=== PATIENT | male | born 1960 | race Caucasian/White ===

== ENCOUNTER 2017-02-28 16:27 | Emergency (ER) | payer OTHER ==
[2017-02-28 16:36] VITALS: BP 111/72; PULSE 99; RESP 16; TEMP 97.7
[2017-02-28] MEDS ORDERED: DIPH,PERTUS(ACELL)TETVAC-LF 0.5 ML VIAL IM ONE (16:41)
--- NOTE | 2017-02-28 17:08 | ED ---
Wound/Laceration HPI - General Chief Complaint: Wound/Laceration Stated Complaint: hand lac Time Seen by Provider: 02/28/17 16:32 Source: patient, family Mode of arrival: ambulatory Limitations: no limitations - History of Present Illness Initial Comments: 56 old male presents to clinic with left hand laceration that occurred just prior to arrival. Patient was fishing and knife accidentally caused a laceration near the 4th MCP region. Patient states it hurt really bad and blood really bad there is able to move his hand. Patient denies any numbness or tingling or loss of sensation. Patient not sure if his tetanus is up-to- date. Patient didn't get the bleeding under control with pressure. Patient was not able to clean the wound. -: minutes(s) Place: outdoors Context: accidental, sharp object use Associated Symptoms: pain - Related Data Home Medications Medication Instructions Recorded Confirmed Multivitamin [Men's Multi-Vitamin] 1 each PO DAILY 07/05/14 02/28/17 Simvastatin [Zocor] 10 mg PO HS 07/05/14 02/28/17 oxyCODONE HCL [Oxycodone HCl] 5 mg PO HS PRN 08/30/14 02/28/17 Previous Rx's Medication Instructions Recorded clonazePAM [KlonoPIN] 2 mg PO TID #90 tablet 08/02/14 oxyCODONE HCL 20 mg PO Q6HR PRN #120 tab 08/02/14 Ibuprofen [Motrin] 800 mg PO Q8HR PRN #30 tab 02/28/17 Sulfamethox-Tmp 800-160Mg [Bactrim 1 each PO Q12HR #14 tab 02/28/17 DS 800-160 mg] Allergies Allergy/AdvReac Type Severity Reaction Status Date / Time Penicillins Allergy Rash/Hives Verified 02/28/17 16:31 Review of Systems ROS Statement: Those systems with pertinent positive or pertinent negative responses have been documented in the HPI. ROS Other: All systems not noted in ROS Statement are negative. Constitutional: Denies: fever, chills Skin: Reports: other (Laceration to the left hand between first and second digit ). Denies: rash, lesions Past Medical History Past Medical History: Fibromyalgia, Sleep Apnea/CPAP/BIPAP, Thyroid Disorder Additional Past Medical History / Comment(s): DOES NOT USE CPAP. KARTHIK CARPAL TUNNEL PROBS. CHRONIC LOW BACK/NECK PAIN. History of Any Multi-Drug Resistant Organisms: None Reported Past Surgical History: Appendectomy, Orthopedic Surgery Additional Past Surgical History / Comment(s): RT. HAND SURGERY . COLONOSCOPY 2010. Past Anesthesia/Blood Transfusion Reactions: No Reported Reaction Past Psychological History: Anxiety Smoking Status: Current every day smoker Past Alcohol Use History: None Reported Past Drug Use History: None Reported General Exam Limitations: no limitations General appearance: alert, in no apparent distress Eye exam: Present: normal appearance, PERRL, EOMI. Absent: scleral icterus, conjunctival injection, periorbital swelling Respiratory exam: Present: normal lung sounds bilaterally. Absent: respiratory distress, wheezes, rales, rhonchi, stridor Cardiovascular Exam: Present: regular rate, normal rhythm, normal heart sounds. Absent: systolic murmur, diastolic murmur, rubs, gallop, clicks Neurological exam: Present: alert, oriented X3, CN II-XII intact Psychiatric exam: Present: normal affect Skin exam: Present: warm, dry, normal color. Absent: intact (Greater than 1 cm stellate lesion to the left 4th MCP region. Bleeding controlled slightly tender to palpation full range of motion of the hand full sensation good capillary refill and radial pulse.), rash Course Vital Signs 02/28/17 16:32 Temperature 97.7 F Pulse Rate 99 Respiratory 16 Rate Blood Pressure 111/72 O2 Sat by Pulse 94 L Oximetry Procedures - Laceration Laceration #1 Indication: laceration Site: hand Description: stellate, flap Depth: simple, single layer Anesthetic Used: lidocaine 1% Anesthesia Technique: local infiltration Pre-repair: wound explored, irrigated extensively, deep structures intact Size of Sutures: 5-0 Number of Sutures: 4 Technique: simple, interrupted Patient Tolerated Procedure: well, no complications Additional Comments: Patient tolerated it well bacitracin dressing applied Medical Decision Making - Medical Decision Making Reviewed x-ray negative for any acute fractures. Patient aware patient given Scott wrap along with bandage in bacitracin. Disposition Clinical Impression: Laceration Disposition: HOME SELF-CARE Condition: Good Instructions: Laceration (ED) Prescriptions: Ibuprofen [Motrin] 800 mg PO Q8HR PRN #30 tab PRN Reason: Pain Sulfamethox-Tmp 800-160Mg [Bactrim DS 800-160 mg] 1 each PO Q12HR #14 tab Referrals: Eran Gillette DO [Primary Care Provider] - 1-2 days Time of Disposition: 17:25
--- NOTE | 2017-02-28 17:37 | XR ---
Left hand HISTORY: Laceration fourth and fifth metacarpal area 3 views of the left hand No comparisons Bone mineralization, joint spaces and alignment are maintained. No radiopaque foreign body. IMPRESSION: No acute abnormalities evident
== END 2017-02-28 17:30 | disposition home or self-care (01) ==
LOC: EC 16:27
DX: S61.412A Laceration without foreign body of left hand, initial encounter (principal); F17.200 Nicotine dependence, unspecified, uncomplicated; Z79.899 Other long term (current) drug therapy; Z88.0 Allergy status to penicillin; Z23 Encounter for immunization; Z98.890 Other specified postprocedural states; W26.0XXA Contact with knife, initial encounter; Y93.89 Activity, other specified
CPT/HCPCS: 12041; 90471; 90715; 99282

== ENCOUNTER 2018-08-16 12:43 | Emergency (ER) | payer OTHER ==
[2018-08-16 13:12] VITALS: BP 138/77; PULSE 45; RESP 18; TEMP 96.8
--- NOTE | 2018-08-16 14:24 | XR ---
EXAMINATION TYPE: XR shoulder complete LT DATE OF EXAM: 08/16/2018 COMPARISON: NONE HISTORY: Pain TECHNIQUE: Three views are submitted. FINDINGS: The osseous structures are intact. There is no acute fracture or dislocation. Mild arthropathy of th e AC joint. IMPRESSION: 1. No acute process. 2. AC joint arthropathy. If there is concern for rotator cuff injury correlate with MRI.
--- NOTE | 2018-08-16 14:41 | ED ---
Upper Extremity HPI - General Chief Complaint: Extremity Injury, Upper Stated Complaint: lt arm pain Time Seen by Provider: 08/16/18 12:52 Source: patient, family Mode of arrival: ambulatory Limitations: no limitations - History of Present Illness Initial Comments: 58-year-old male with past medical history of chronic bilateral shoulder pain and cervical radiculopathy presenting today for worsening left shoulder pain x months. Patient states that he has been struggling with shoulder pain for the past 10 years. He was recently diagnosed with a rotator cuff injury via MRI. He was seen by Dr. Cerda. 3 months ago patient received shoulder injection which he states worsening the pain. Pt describes the pain as a sharp shooting pain from the shoulder down to the wrist. Pt states that the pain is aching at night. Pt states that the flores is 10/10 at its worst but it fluculates throughout the day. She denied muscle weakness, erythema, joint warmth/swelling , numbness, tingling, loss sensation of the upper left extremity. Does admit to decreased range motion of left shoulder and crepitus of left shoulder. Pt was inquiring if a blood clot can cause this much pain, pt denies history of active cancer, bedridden greater than 3 days her major surgery, swelling or upper extremity swelling, previously diagnosed DVT, upper extremity swelling/ lower extremity swelling, warmth, redness, masses of the upper extremity or pain the deep venous system. Pt denies any new injury to neck or shoulder b/l. No history of fall. Pt has been taking norco for pain as prescribed for pain mgmt. Remainder of ROS (-) patient denies any recent fever, chills, shortness of breath, chest pain, back pain, abdominal pain, nausea or vomiting, numbness or tingling, dysuria or hematuria, constipation or diarrhea, headaches or visual changes, or any other complaints. - Related Data Home Medications Medication Instructions Recorded Confirmed Multivitamin [Men's Multi-Vitamin] 1 tab PO DAILY 07/05/14 08/16/18 Atorvastatin Calcium [Lipitor] 10 mg PO HS 08/16/18 08/16/18 Gabapentin (Unknown Dose) 1 cap PO HS 08/16/18 08/16/18 Magnesium Oxide [Mag-Ox] 250 mg PO DAILY 08/16/18 08/16/18 oxyCODONE HCL 30 mg PO Q6H PRN 08/16/18 08/16/18 Previous Rx's Medication Instructions Recorded Ibuprofen [Motrin] 800 mg PO Q8HR PRN #30 tab 02/28/17 Allergies Allergy/AdvReac Type Severity Reaction Status Date / Time Penicillins Allergy Rash/Hives Verified 08/16/18 13:46 Review of Systems ROS Statement: Those systems with pertinent positive or pertinent negative responses have been documented in the HPI. ROS Other: All systems not noted in ROS Statement are negative. Constitutional: Denies: fever, chills, night sweats Respiratory: Denies: cough, dyspnea, wheezes, hemoptysis, stridor Cardiovascular: Denies: chest pain, palpitations Endocrine: Denies: fatigue Gastrointestinal: Denies: abdominal pain, nausea, vomiting, diarrhea, constipation Musculoskeletal: Reports: as per HPI (chronic neck pain hx of bulging disc c- spine), arthralgia. Denies: back pain, joint swelling Skin: Denies: rash, lesions Neurological: Denies: headache, weakness, numbness, paresthesias, confusion, abnormal gait Past Medical History Past Medical History: Fibromyalgia, Sleep Apnea/CPAP/BIPAP, Thyroid Disorder Additional Past Medical History / Comment(s): DOES NOT USE CPAP. KARTHIK CARPAL TUNNEL PROBS. CHRONIC LOW BACK/NECK PAIN. History of Any Multi-Drug Resistant Organisms: None Reported Past Surgical History: Appendectomy, Orthopedic Surgery Additional Past Surgical History / Comment(s): RT. HAND SURGERY 1979'S. COLONOSCOPY 2010. Past Anesthesia/Blood Transfusion Reactions: No Reported Reaction Past Psychological History: Anxiety Smoking Status: Current every day smoker Past Alcohol Use History: None Reported Past Drug Use History: None Reported General Exam - General Exam Comments Initial Comments: General: The patient is awake and alert, in no distress, and does not appear acutely ill. Eye: Pupils are equal, round , extra-ocular movements are intact. No nystagmus. There is normal conjunctiva bilaterally. No signs of icterus. Ears, nose, mouth and throat: There are moist mucous membranes and no oral lesions. Neck: The neck is supple, there is no tenderness or JVD. No midline tenderness to palpation of the C-spine. Patient is able to fully range this time with flexion, extension, lateral rotation and lateral flexion. Cardiovascular: There is a regular rate and rhythm. No murmur, rub or gallop is appreciated. Respiratory: Lungs are clear to auscultation, respirations are non-labored, breath sounds are equal. No wheezes, stridor, rales, or rhonchi. Musculoskeletal: No rashes, lesions, erythema or swelling of shoulder b/l. No obvious deformities or defect .No winging of the scapula. Limited ROM of the right UE, pt complains of palpation over the AC joint no pain to palpation of the scalpula. (+) Neer testing, Empty can, AC cross testing. Strength 5/5 the UE equally b/l including shoulder, elbows, and wrist. No badge anesthesia. Sensation intact of the UE equally b/l. Radial and ulnar pulses equal bilaterally 2+. Capillary refill <2seconds. Patient is able to make the okay, fingers crossed for thumbs-up, finger opposition and stop sign with the hands bilaterally-median, ulnar and radial nerve intact bilaterally. No pain along deep venous system of UE b/l. No edema or swelling of the UE b/l. No masses noted along deep venous system. Neurological: A&O x 3. CN II-XII intact, There are no obvious motor or sensory deficits. Coordination appears grossly intact. Speech is normal. Skin: Skin is warm and dry and no rashes or lesions are noted. Psychiatric: Cooperative, appropriate mood & affect, normal judgment. Limitations: no limitations Course Vital Signs 08/16/18 13:05 Temperature 96.8 F L Pulse Rate 45 L Respiratory 18 Rate Blood Pressure 138/77 O2 Sat by Pulse 98 Oximetry Medical Decision Making - Medical Decision Making MSK exam as noted above, concerning for rotator cuff or AC joint disease/ injury. Pt is neurovascularly intact. X-ray obtained revealing AC joint arthropathy (-) for fracture, dislocation. Pt placed in sling. Given orthopedic surgery f/u. I do not have concern for DVT, (-) Wells score and clinical signs and symptoms correlate with rotator cuff injury/cervical radiculopathy. Pt denied pain medication today stating he just wanted orthopedic referral. Pt given disc of imagine obtained today, I recommended further imaging such as MRI which he can obtain from orthopedic consultation if deemed appropriate. I do not have concern for a septic joint for cause of symptoms. At this time I feel pt is stable for discharge with orthopedic surgery f/u for possible rotator cuff injury. Case discussed with Dr. Zhu prior to d/c who agreed with impression and plan. Disposition Clinical Impression: Left shoulder pain, Radiculopathy of cervical spine Disposition: HOME SELF-CARE Condition: Good Instructions: Rotator Cuff Injury (ED), Shoulder Pain (ED) Additional Instructions: Please use home medication as discussed. Please follow-up with orthopedic surgery in the next 1-2 days. Please return to emergency room if the symptoms increase or worsen or for any other concerns, as discussed. Is patient prescribed a controlled substance at d/c from ED?: No Referrals: Eran Gillette DO [Primary Care Provider] - 1-2 days Jovon Bush MD [STAFF PHYSICIAN] - 1-2 days Time of Disposition: 14:41
== END 2018-08-16 14:53 | disposition home or self-care (01) ==
LOC: EC 12:43
DX: M54.12 Radiculopathy, cervical region (principal); M25.512 Pain in left shoulder; F41.9 Anxiety disorder, unspecified; F17.200 Nicotine dependence, unspecified, uncomplicated; Z90.49 Acquired absence of other specified parts of digestive tract; Z98.890 Other specified postprocedural states; Z79.899 Other long term (current) drug therapy; Z88.0 Allergy status to penicillin
CPT/HCPCS: 99283

== ENCOUNTER → 2019-02-14 | Outpatient (CLI) | payer OTHER ==
--- NOTE | 2019-02-14 14:00 | MR ---
EXAMINATION TYPE: MR shoulder RT wo con DATE OF EXAM: 02/14/2019 COMPARISON: Right shoulder MRI December 04, 2010 HISTORY: Shoulder joint pain per order. Recent trip and fall injury with pain and difficulty raising arm overhead. TECHNIQUE: Multiplanar, multisequence imaging of the right shoulder is performed without contrast. FINDINGS: Rotator Cuff: There is tiny insertional articular surface tear distal supraspinatus tendon posterior fibers measuring 3 mm transversely coronal image 14 and 2 mm in AP diameter sagittal image 24. Some i ncreased signal distal supraspinatus tendon is present present. Rotator cuff muscle bulk is preserved . Subscapularis tendon is intact. Acromioclavicular Joint: Mild to moderate capsular hypertrophy with moderate narrowing is present. Th ere is type II downsloping acromion. Glenohumeral Joint: Moderate narrowing with small effusion is redemonstrated. No significant spurring is seen. Labrum: The labrum appears grossly intact given limitation of non-arthrogram study. Biceps Tendon: The long head of biceps is in normal location within bicipital groove. Bone marrow signal: Heterogeneity consistent with red marrow reconversion is seen. Other: Increased fluid signal subdeltoid/subacromial bursa is present. IMPRESSION: 1. New small articular surface tear of supraspinatus tendon. Tendinosis of distal infraspinatus tendo n. Persistent type II downsloping acromion with underlying impingement suspected. Persistent mild to moderate subdeltoid/subacromial bursitis.
== END | disposition home or self-care (01) ==
LOC: RADMRIMAIN 12:04
PROVIDERS: ATTEND Nurse Practitioner Family
DX: M75.101 Unspecified rotator cuff tear or rupture of right shoulder, not specified as traumatic (principal); M67.813 Other specified disorders of tendon, right shoulder; M75.51 Bursitis of right shoulder

== ENCOUNTER → 2019-02-24 | Outpatient (CLI) | payer OTHER ==
--- NOTE | 2019-02-24 20:32 | MR ---
EXAMINATION TYPE: MR shoulder LT wo con DATE OF EXAM: 02/24/2019 COMPARISON: Plain film 08/16/2018 and prior left shoulder MRI 12/04/2010 HISTORY: Left shoulder pain TECHNIQUE: Multiplanar, multisequence imaging of the left shoulder is performed without contrast. FINDINGS: Rotator Cuff: There is a deena tear of the infraspinatus musculotendinous junction, there is retracti on, fluid signal extends along the musculotendinous junction to the level inferior to the scapula spi ne, there is also abnormal signal at the insertion consistent with some tendinosis and partial full-t hickness tear of the conjoined tendon, supraspinatus tendon insertion. There is also fluid signal pre sent at the musculotendinous junction of the teres minor with thickening of the tendon compatible wit h tear Acromioclavicular Joint: Arthropathy of the acromioclavicular joint causes some mass effect on the mu sculotendinous junction of supraspinatus, there is distal acromial spur Glenohumeral Joint: Mild arthropathy changes present. Labrum: The labrum appears grossly intact given limitation of non-arthrogram study. Biceps Tendon: Some fluid signal is present along the long head of biceps tendon which shows a normal position. Bone marrow signal: No focal abnormal marrow signal is appreciated. Other: Fluid signal is present in the subacromial subdeltoid bursa. IMPRESSION: Musculotendinous rupture of the infraspinatus and likely teres minor. Distal acromial spur. Rotator c uff tendon tear as described.
== END | disposition home or self-care (01) ==
LOC: RADMRIMAIN 15:05
PROVIDERS: ATTEND Family Medicine
DX: M75.102 Unspecified rotator cuff tear or rupture of left shoulder, not specified as traumatic (principal); S46.912A Strain of unspecified muscle, fascia and tendon at shoulder and upper arm level, left arm, initial encounter; M25.712 Osteophyte, left shoulder

== ENCOUNTER 2019-08-09 18:43 | Emergency (ER) | payer OTHER ==
[2019-08-09] MEDS ORDERED: DIPH,PERTUS(ACELL)TETVAC-LF 0.5 ML VIAL IM ONE (19:18)
[2019-08-09] MEDS ORDERED: ceFAZolin 1,000 MG VIAL (IM USE) IM STA (19:22)
[2019-08-09 19:26] VITALS: RESP 18; TEMP 96.4
--- NOTE | 2019-08-09 19:54 | ED ---
Wound/Laceration HPI - General Chief Complaint: Wound/Laceration Stated Complaint: leg lac Time Seen by Provider: 08/09/19 19:18 Source: patient Mode of arrival: ambulatory Limitations: no limitations - History of Present Illness Initial Comments: 59yo male presented for right jones injury. Patient states he was using a high- powered chicle grinder feeder to cut off the seat from a boat when it slipped breaking and hitting him in the right anterior jones. Patient states he is unsure if there's foreign body. Patient states he is able to walk it has full range of motion and strength of the foot and the knee. Patient states it appears to be a deep laceration. Denies exposure of bone. Eyes numbness tingling or loss of sensation Patient states bleeding is controlled patient is unsure of his last tetanus. Review of systems negative patient denies any other complaints or area of injury. - Related Data Home Medications Medication Instructions Recorded Confirmed oxyCODONE HCL [oxyCODONE HCL (IR)] 30 mg pe PO DAILY 08/09/19 08/09/19 Previous Rx's Medication Instructions Recorded Cephalexin [Keflex] 500 mg PO Q8HR 7 Days #21 cap 08/09/19 Allergies Allergy/AdvReac Type Severity Reaction Status Date / Time Penicillins Allergy Rash/Hives Verified 08/09/19 19:23 Review of Systems ROS Statement: Those systems with pertinent positive or pertinent negative responses have been documented in the HPI. ROS Other: All systems not noted in ROS Statement are negative. Past Medical History Past Medical History: Fibromyalgia, Sleep Apnea/CPAP/BIPAP, Thyroid Disorder Additional Past Medical History / Comment(s): DOES NOT USE CPAP. KARTHIK CARPAL TUNNEL PROBS. CHRONIC LOW BACK/NECK PAIN. History of Any Multi-Drug Resistant Organisms: None Reported Past Surgical History: Appendectomy, Orthopedic Surgery Additional Past Surgical History / Comment(s): RT. HAND SURGERY 1979'S. COLONOSCOPY 2010. Past Anesthesia/Blood Transfusion Reactions: No Reported Reaction Past Psychological History: Anxiety Smoking Status: Current every day smoker Past Alcohol Use History: None Reported Past Drug Use History: None Reported General Exam - General Exam Comments Initial Comments: General: The patient is awake and alert, in no distress, and does not appear acutely ill. Eye: Pupils are equal, round and reactive to light, extra-ocular movements are intact. No nystagmus. There is normal conjunctiva bilaterally. No signs of icterus. Ears, nose, mouth and throat: There are moist mucous membranes and no oral lesions. Neck: The neck is supple, there is no tenderness or JVD. Cardiovascular: There is a regular rate and rhythm. No murmur, rub or gallop is appreciated. Respiratory: Lungs are clear to auscultation, respirations are non-labored, breath sounds are equal. No wheezes, stridor, rales, or rhonchi. Musculoskeletal: Normal ROM, no tenderness at the knee or ankle patient is able to plantarflex dorsiflex the ankle without difficulty no evidence of foot drop. Strength 5/5. Sensation intact.Pulses equal bilaterally 2+. Neurological: A&O x 3. CN II-XII intact, There are no obvious motor or sensory deficits. Coordination appears grossly intact. Speech is normal. Skin: Skin is warm and dry and no rashes. 2.5 cm laceration of the right anterior jones no exposure of bone or tendon obvious. No foreign body, edges appear burned, no active bleeding Psychiatric: Cooperative, appropriate mood & affect, normal judgment. Limitations: no limitations Course Vital Signs 08/09/19 08/09/19 19:24 22:16 Temperature 96.4 F L Pulse Rate 61 81 Respiratory 18 18 Rate Blood Pressure 116/77 101/52 O2 Sat by Pulse 93 L 97 Oximetry Procedures - Laceration Laceration #1 Consent Obtained: verbal consent Indication: laceration Site: lower extremity (Right jones) Size (cm): 2 (2.5) Description: linear Depth: simple, single layer Anesthetic Used: lidocaine 1% Anesthesia Technique: local infiltration Amount (mls): 3 Pre-repair: wound explored, deep structures intact Type of Sutures: nylon Size of Sutures: 4-0 Number of Sutures: 6 Technique: simple, interrupted Patient Tolerated Procedure: well, no complications Additional Comments: Wound was extensively irrigated, cleansed with iodine. I did remove devitalized edges, revise edges given that there was cauterized edges given the heat of the chicle grinder feeder cut patient. There is no obvious tendon exposure. I did review imaging studies prior to closure. Procedure went without complication Medical Decision Making - Medical Decision Making 89-year-old male presents emergency chart for evaluation of jones laceration. Indices revealed no foreign body or fracture. Patient was given antibiotics in the emergency room. Wound edges were revised after cleansing and irrigation as well as local anesthetic. Patient wound edges approximated well. Signs of infection as well as risk of delayed healing secondary to the cauterization caused by the hot to rediscuss the patient verbalizes understanding. Patient is to return in 7-10 days for suture removal. Patient is agreeable with this care plan discharge at this time. Patient's tetanus vaccination was updated. I did recommend patient given the area of laceration and depth follow-up with orthopedic surgery patient is agreeable with this care plan Disposition Clinical Impression: Leg laceration, Leg pain Disposition: HOME SELF-CARE Condition: Good Instructions (If sedation given, give patient instructions): Care For Your Stitches (ED), Laceration (ED) Additional Instructions: Please use medication as discussed. Please follow-up with family doctor in the next 2 days. Please return to emergency room if the symptoms increase or worsen or for any other concerns. Prescriptions: Cephalexin [Keflex] 500 mg PO Q8HR 7 Days #21 cap Is patient prescribed a controlled substance at d/c from ED?: No Referrals: Eran Gillette DO [Primary Care Provider] - 1-2 days Vitaliy Roberson MD [Medical Doctor] - 1-2 days Time of Disposition: 22:03
[2019-08-09] MEDS ORDERED: MORPHINE SULFATE 4 MG/ML SYRINGE IM STA (20:04)
[2019-08-09] MEDS ORDERED: HYDROcodone/APAP 7.5-325MG 1 EACH TAB PO ONE (20:04)
--- NOTE | 2019-08-09 20:57 | XR ---
PROCEDURE: XR tibia fibula RT - 3V DATE AND TIME: 08/09/2019 8:13 PM CLINICAL INDICATION: PHH; assess for FB, large laceration TECHNIQUE: Department protocol COMPARISON: None FINDINGS: There is no fracture or malalignment. The soft tissues are unremarkable. No radiopaque fore ign bodies. IMPRESSION: NO ACUTE PROCESS.
[2019-08-09] MEDS ORDERED: LIDOCAINE 1% INJ 10MG/ML (20 ML MDV) SQ ONE (21:31)
[2019-08-09 22:16] VITALS: BP 101/52; PULSE 81
== END 2019-08-09 22:16 | disposition home or self-care (01) ==
LOC: EC 18:43
DX: S81.811A Laceration without foreign body, right lower leg, initial encounter (principal); Z23 Encounter for immunization; G47.30 Sleep apnea, unspecified; F17.200 Nicotine dependence, unspecified, uncomplicated; Z88.0 Allergy status to penicillin; W31.89XA Contact with other specified machinery, initial encounter; Y92.009 Unspecified place in unspecified non-institutional (private) residence as the place of occurrence of the external cause
CPT/HCPCS: 73590; 90715; 99283; 12001; 90471; 96372 ×2; J2270; J0690; J2001

== ENCOUNTER 2019-12-26 12:48 | Observation (INO) | payer OTHER ==
[2019-12-26 12:58] LABS: Glucose,Whole Blood 136 mg/dL (75-99)
[2019-12-26 13:20] LABS: Basophils # (A) 0.1 k/uL (0-0.2); Basophils % (A) 1 %; Eosinophils # (A) 0.1 k/uL (0-0.7); Eosinophils % (A) 2 %; HCT 47.7 % (39.0-53.0); HGB 16.6 gm/dL (13.0-17.5); Lymphocytes # (A) 2.2 k/uL (1.0-4.8); Lymphocytes % (A) 29 %; MCH 32.9 pg (25.0-35.0); MCHC 34.7 g/dL (31.0-37.0); MCV 94.6 fL (80.0-100.0); Mean Platelet Volume 7.9; Monocytes # (A) 0.3 k/uL (0-1.0); Monocytes % (A) 5 %; Neutrophils # (A) 4.7 k/uL (1.3-7.7); Neutrophils % (A) 60 %; Platelet Count 327 k/uL (150-450); RBC 5.04 m/uL (4.30-5.90); RDW 12.2 % (11.5-15.5); WBC 7.7 k/uL (3.8-10.6)
--- NOTE | 2019-12-26 13:24 | CT ---
EXAMINATION TYPE: CT brain wo con for TPA DATE OF EXAM: 12/26/2019 COMPARISON: None INDICATION: Dizziness, right arm weakness DLP: 1079.8 mGycm, Automated exposure control for dose reduction was used. CONTRAST: None CT of the brain is performed utilizing 3 mm thick sections through the posterior fossa and 3 mm thick sections through the remaining calvarium. Study is performed within 24 hours of arrival to the hosp [facility]. No abnormal hyperdensity is present to suggest an acute intracranial hemorrhage. No mass lesion is evident. No acute infarcts are evident. Ventricles and sulci are appropriate for the patient age. Paranasal sinuses and mastoid air cells within the [id number] are clear. IMPRESSIONS: 1. No acute intracranial process.
[2019-12-26 13:31] LABS: ALT 21 U/L (4-49); AST 23 U/L (17-59); African American GFR (CKD) >90 (>60 ml/min/1.73 sqM); Albumin 4.6 g/dL (3.5-5.0); Alkaline Phosphatase 70 U/L (38-126); Anion Gap 10 mmol/L; Blood Urea Nitrogen 16 mg/dL (9-20); Calcium 9.7 mg/dL (8.4-10.2); Carbon Dioxide 23 mmol/L (22-30); Chloride 103 mmol/L (98-107); Glucose 115 mg/dL (74-99); Non-African American GFR(CKD) >90 (>60 ml/min/1.73 sqM); Potassium 4.2 mmol/L (3.5-5.1); Sodium 136 mmol/L (137-145); Total Bilirubin 0.7 mg/dL (0.2-1.3); Total Protein 7.3 g/dL (6.3-8.2)
[2019-12-26 13:38] LABS: Partial Thromboplastin Time 25.1 sec (22.0-30.0); Prothrombin Time 10.4 sec (9.0-12.0)
[2019-12-26 13:42] LABS: Creatine Kinase 70 U/L (55-170)
[2019-12-26 13:54] LABS: Creatine Kinase MB 0.7 ng/mL (0.0-2.4); Troponin I <0.012 ng/mL (0.000-0.034)
--- NOTE | 2019-12-26 14:02 | CT ---
EXAMINATION TYPE: CT angio head neck DATE OF EXAM: 12/26/2019 HISTORY: Neural deficits acute stroke COMPARISON: None CT DLP: Automated Exposure Control for Dose Reduction was Utilized. TECHNIQUE: CTA scan of the neck is performed with IV Contrast, patient injected with 50 mL of Isovue 370, axial images are obtained, coronal and sagittal reformatted images are reviewed. Three-D recons tructed images are created on an independent workstation and reviewed. Source images are reviewed. FINDINGS: Carotid/Vascular Structures: Internal and external carotid arteries appear to originate from the aort ic arch separately. External carotid arteries extend to the expected region of the bifurcation before significant branching. The internal carotid arteries continue to the skull base bilaterally. Cervical of [place]: Vertebral basilar system appears normal. Posterior cerebral vasculature is unrema rkable. Internal carotid arteries bifurcate normally into A1 and M1 segments. A2 segments are normal. The anterior communicating artery is patent. Left Posterior communicating artery is patent. IMPRESSION: 1. 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 The internal carotid arteries are patent to the skull base. 2. Normal [place] of [place]
--- NOTE | 2019-12-26 14:07 | ED ---
General Adult HPI - General Chief complaint: Neuro Symptoms/Deficit Stated complaint: Dizziness/arm numb Source: patient, family Mode of arrival: ambulatory Limitations: no limitations - History of Present Illness Initial comments: The patient is a 59-year-old male who presents to the emergency room with reported right upper and right lower extremity weakness. He states that he hasn't felt well for the past few days. He has been very sleep deprived. He states that one hour prior to arrival he began having weakness in his right upper and right lower extremity with an associated headache. There was no reported speech difficulties. The patient states he does feel confused. He denies any head trauma. No photophobia or neck stiffness. No fevers or chills. Denies any recent illnesses. No history of strokes. Denies any chest pain or shortness of breath. No weakness on the left side noted. No facial droop. He did come in to the emergency department for further evaluation. There are no other alleviating, precipitating or modifying factors - Related Data Home Medications Medication Instructions Recorded Confirmed oxyCODONE HCL [oxyCODONE HCL (IR)] 30 mg PO Q6H PRN 08/09/19 12/26/19 Allergies Allergy/AdvReac Type Severity Reaction Status Date / Time Penicillins Allergy Rash/Hives Verified 12/26/19 15:54 Review of Systems ROS Statement: Those systems with pertinent positive or pertinent negative responses have been documented in the HPI. ROS Other: All systems not noted in ROS Statement are negative. Past Medical History Past Medical History: Fibromyalgia, Sleep Apnea/CPAP/BIPAP, Thyroid Disorder Additional Past Medical History / Comment(s): DOES NOT USE CPAP. KARTHIK CARPAL TUNNEL PROBS. CHRONIC LOW BACK/NECK PAIN. History of Any Multi-Drug Resistant Organisms: None Reported Past Surgical History: Appendectomy, Orthopedic Surgery Additional Past Surgical History / Comment(s): RT. HAND SURGERY S. COLONOSCOPY 2010. Past Anesthesia/Blood Transfusion Reactions: No Reported Reaction Past Psychological History: Anxiety Smoking Status: Current every day smoker Past Alcohol Use History: None Reported Past Drug Use History: None Reported General Exam Limitations: no limitations Course Vital Signs 12/26/19 12/26/19 12/26/19 12:50 13:06 13:21 Temperature 98.1 F 98.4 F Pulse Rate 70 79 82 Respiratory 18 20 20 Rate Blood Pressure 141/80 124/89 127/76 O2 Sat by Pulse 98 95 98 Oximetry 12/26/19 12/26/19 12/26/19 13:30 13:45 14:00 Temperature Pulse Rate 77 79 80 Respiratory 20 20 20 Rate Blood Pressure 139/89 122/82 129/78 O2 Sat by Pulse 95 95 95 Oximetry 12/26/19 12/26/19 12/26/19 14:15 14:45 15:15 Temperature Pulse Rate 80 79 74 Respiratory 20 20 20 Rate Blood Pressure 108/72 132/87 151/91 O2 Sat by Pulse 95 94 L 96 Oximetry 12/26/19 16:44 Temperature Pulse Rate 76 Respiratory 20 Rate Blood Pressure 118/82 O2 Sat by Pulse 100 Oximetry EKG Findings - EKG Comments: EKG Findings:: EKG demonstrates a sinus rhythm with frequent PVCs. Rate of 85. FL interval 164. QRS any. QTC of 440. There is an incomplete right bundle- branch block. No acute ST segment relations depressions concerning for ischemic changes. Medical Decision Making - Medical Decision Making Upon arrival the patient was placed in room 16. A thorough history and physical exam was performed. A 12-lead EKG was performed. We did activate a code choke the patient was sent for a CT of his head as well as a CT angiography of his head and neck. I discussed the case with Dr. Chapa. He does recommend that the patient get TPA with an NIH score of 4. The patient does come back from CT. Imaging is reviewed and is negative for any acute findings. Dr. Chapa does evaluate the patient. Patient is refusing TPA at this time. He is of sound mind and capable of making his own decisions. Family is at bedside and they all agreed to refuse of TPA at 1:30. The patient is reevaluated and he does have equal body designer strength in his hands. He is able to pick both legs up off the bed. It does appear that the patient's symptoms have completely resolved at this time. We did proceed with laboratory studies all of which are unremarkable. I did discuss the case with Dr. Membreno who accepted hospital admission. I will consult Dr. James. The patient will receive an aspirin and statin. I did order an MRI because of Dr. Membreno's request. The patient is awaiting a bed on the floor - Lab Data Result diagrams: 12/26/19 13:00 12/26/19 13:00 Lab Results 12/26/19 12/26/19 12/26/19 Range/Units 12:57 13:00 13:00 WBC 7.7 (3.8-10.6) k/uL RBC 5.04 (4.30-5.90) m/uL Hgb 16.6 (13.0-17.5) gm/dL Hct 47.7 (39.0-53.0) % MCV 94.6 (80.0-100.0) fL MCH 32.9 (25.0-35.0) pg MCHC 34.7 (31.0-37.0) g/dL RDW 12.2 (11.5-15.5) % Plt Count 327 (150-450) k/uL Neutrophils % 60 % Lymphocytes % 29 % Monocytes % 5 % Eosinophils % 2 % Basophils % 1 % Neutrophils # 4.7 (1.3-7.7) k/uL Lymphocytes # 2.2 (1.0-4.8) k/uL Monocytes # 0.3 (0-1.0) k/uL Eosinophils # 0.1 (0-0.7) k/uL Basophils # 0.1 (0-0.2) k/uL PT (9.0-12.0) sec INR (<1.2) APTT (22.0-30.0) sec Sodium 136 L (137-145) mmol/L Potassium 4.2 (3.5-5.1) mmol/L Chloride 103 (98-107) mmol/L Carbon Dioxide 23 (22-30) mmol/L Anion Gap 10 mmol/L BUN 16 (9-20) mg/dL Creatinine 0.70 (0.66-1.25) mg/dL Est GFR (CKD-EPI)AfAm >90 (>60 ml/min/1.73 sqM) Est GFR (CKD-EPI)NonAf >90 (>60 ml/min/1.73 sqM) Glucose 115 H (74-99) mg/dL POC Glucose (mg/dL) 136 H (75-99) mg/dL POC Glu Health And Safety Director ID [place] Calcium 9.7 (8.4-10.2) mg/dL Total Bilirubin 0.7 (0.2-1.3) mg/dL AST 23 (17-59) U/L ALT 21 (4-49) U/L Alkaline Phosphatase 70 (38-126) U/L Total Creatine Kinase (55-170) U/L CK-MB (CK-2) (0.0-2.4) ng/mL CK-MB (CK-2) Rel Index Troponin I (0.000-0.034) ng/mL Total Protein 7.3 (6.3-8.2) g/dL Albumin 4.6 (3.5-5.0) g/dL 12/26/19 12/26/19 Range/Units 13:00 13:00 WBC (3.8-10.6) k/uL RBC (4.30-5.90) m/uL Hgb (13.0-17.5) gm/dL Hct (39.0-53.0) % MCV (80.0-100.0) fL MCH (25.0-35.0) pg MCHC (31.0-37.0) g/dL RDW (11.5-15.5) % Plt Count (150-450) k/uL Neutrophils % % Lymphocytes % % Monocytes % % Eosinophils % % Basophils % % Neutrophils # (1.3-7.7) k/uL Lymphocytes # (1.0-4.8) k/uL Monocytes # (0-1.0) k/uL Eosinophils # (0-0.7) k/uL Basophils # (0-0.2) k/uL PT 10.4 (9.0-12.0) sec INR 1.0 (<1.2) APTT 25.1 (22.0-30.0) sec Sodium (137-145) mmol/L Potassium (3.5-5.1) mmol/L Chloride (98-107) mmol/L Carbon Dioxide (22-30) mmol/L Anion Gap mmol/L BUN (9-20) mg/dL Creatinine (0.66-1.25) mg/dL Est GFR (CKD-EPI)AfAm (>60 ml/min/1.73 sqM) Est GFR (CKD-EPI)NonAf (>60 ml/min/1.73 sqM) Glucose (74-99) mg/dL POC Glucose (mg/dL) (75-99) mg/dL POC Glu Health And Safety Director ID Calcium (8.4-10.2) mg/dL Total Bilirubin (0.2-1.3) mg/dL AST (17-59) U/L ALT (4-49) U/L Alkaline Phosphatase (38-126) U/L Total Creatine Kinase 70 (55-170) U/L CK-MB (CK-2) 0.7 (0.0-2.4) ng/mL CK-MB (CK-2) Rel Index 1.0 Troponin I <0.012 (0.000-0.034) ng/mL Total Protein (6.3-8.2) g/dL Albumin (3.5-5.0) g/dL Disposition Clinical Impression: Right arm weakness Disposition: [facility]MITTED IP TO [facility] Condition: Stable Is patient prescribed a controlled substance at d/c from ED?: No Decision to Admit Reason: Admit from EC Decision Date: 12/26/19 Decision Time: 15:31
--- NOTE | 2019-12-26 14:33 | XR ---
EXAMINATION TYPE: XR chest 2V DATE OF EXAM: 12/26/2019 COMPARISON: NONE TECHNIQUE: PA and lateral views submitted. HISTORY: Altered mental status FINDINGS: The lungs are clear and there is no pneumothorax, pleural effusion, or focal pneumonia. No overt fa ilure. IMPRESSION: 1. No acute process.
[2019-12-26] MEDS ORDERED: NALOXONE 0.4 MG/ML 1 ML VIAL IV PRN (15:29)
[2019-12-26] MEDS ORDERED: LORazepam 2 MG/ML INJ IV STA (18:06)
--- NOTE | 2019-12-26 18:59 | MR ---
EXAMINATION TYPE: [facility] DATE OF EXAM: 12/26/2019 6:46 PM COMPARISON: 04/29/2013 HISTORY: RUE/RLE weakness, possible TIA, hx cervical disc disease CONTRAST: Patient received 7.5 mL intravenous Gadavist gadolinium contrast. Multiplanar and multispin-echo imaging of the brain was performed . Pre and post contrast enhanced i mages are obtained. The ventricles, basal cisterns and sulci overlying the cerebral convexities are mildly enlarged. There is evidence of mild periventricular white matter ischemic demyelination. Remote deep white matter insults are also noted. No acute edema is seen on diffusion weighted imaging. There is no evidence for midline shift or mass effect. Acute intracranial hemorrhage or extra-axial collection is not evident. No enhancing lesions are seen. The paranasal sinuses and mastoid air cells are well-aerated. IMPRESSION: Age-related atrophic and chronic small vessel ischemic change. No acute intracranial process at this time. No enhancing lesions are seen. EXAMINATION TYPE: [facility] DATE OF EXAM: 12/26/2019 6:46 PM COMPARISON: 03/20/2016 HISTORY: RUE/RLE weakness, possible TIA, hx cervical disc disease Multiplanar MultiSpin echo imaging of the cervical spine was performed. Comparison: none C2-C3: No evidence for degenerative disc disease. No disc bulge/herniation or protrusion. No Canal stenosis. Foramina are patent bilaterally. C3-C4: Mild disc desiccation with right paracentral disc herniation.Effacement ventral thecal sac wit h minimal ventral CORD contact. No evidence for central stenosis or compressive myelopathy. Right for aminal encroachment. C4-C5: No evidence for degenerative disc disease. No disc bulge/herniation or protrusion. No Canal stenosis. Foramina are patent bilaterally. C5-C6: Moderate disc desiccation. Circumferential disc bulge greatest posteriorly with effacement of the ventral thecal sac. There is a mild central stenosis and bilateral foraminal encroachment at this level. C6-C7: Mild disc desiccation with left paracentral disc protrusion. Effacement ventral thecal sac wit h left lateral recess stenosis and foraminal encroachment. No evidence for central stenosis. C7-T1: No evidence for degenerative disc disease. No disc bulge/herniation or protrusion. No Canal stenosis. Foramina are patent bilaterally. Cervical segments are intact. There is normal alignment. Cervical spinal cord is of normal signal. Craniovertebral junction relationships are within normal limits. IMPRESSION: 1. Multilevel degenerative disc disease. 2. Central stenosis at C5-6. Foraminal encroachment as noted above.
--- NOTE | 2019-12-26 19:14 | P.CNNES ---
History of Present Illness Consult date: 12/26/19 Requesting physician: Kendra Purcell Reason for Consult: Right upper extremity weakness/right lower extremity weakness History of Present Illness: Patient is a 59-year-old male, who presented to the ER at 12:48 PM today for right-sided weakness. Patient states his symptoms started about an hour before he got here. Patient states that he was sitting down, and felt something was not right. He got lightheaded, started breathing fast and also developed numbness and weakness of the right arm and leg, difficulty picking and walking. He states that he almost collapsed to the floor. When patient arrived, his blood pressure was 141/80, pulse rate 70 and temperature 98.1. patient underwent computed tomography scan of the head, which revealed no acute process. 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 Internal carotid arteries are patent to the skull base. Normal [place] of [place]. Chest x-ray showed no acute process. EKG showed sinus rhythm with frequent PVCs. Incomplete right bundle- branch block. Apparently stroke code was initiated. ED staff discussed with the stroke neurologist. Patient states that he "decided against it for the amount of risk". Patient denies any history of hypertension or diabetes. He has smoked half to 1 pack per day for last 35 years. He states that he has quit tobacco "today". Drink, but has not drank for last 5 years. He smoked weed in the past but none for years. Patient does not take any antiplatelet medication. Patient states that he does have history of chronic neck pain. He takes OxyContin 30 mg every 6 hours. Patient's blood test shows normal CBC, PT/PTT, sodium 136 potassium 4.2, liver functions normal. Review of Systems Patient Mainly complains of insomnia. He states that he has not slept for last 8 days. Complains of neck pain. And other symptoms as mentioned above. Denies any chest pressure does of breath wheezing or cough. Past Medical History Past Medical History: Fibromyalgia, Sleep Apnea/CPAP/BIPAP, Thyroid Disorder Additional Past Medical History / Comment(s): DOES NOT USE CPAP. KARTHIK CARPAL TUNNEL PROBS. CHRONIC LOW BACK/NECK PAIN. History of Any Multi-Drug Resistant Organisms: None Reported Past Surgical History: Appendectomy, Orthopedic Surgery Additional Past Surgical History / Comment(s): RT. HAND SURGERY . COLONOSCOPY 2010. Past Anesthesia/Blood Transfusion Reactions: No Reported Reaction Past Psychological History: Anxiety Smoking Status: Current every day smoker Past Alcohol Use History: None Reported Past Drug Use History: None Reported Medications and Allergies Home Medications Medication Instructions Recorded Confirmed Type oxyCODONE HCL [oxyCODONE HCL (IR)] 30 mg PO Q6H PRN 08/09/19 12/26/19 History Allergies Allergy/AdvReac Type Severity Reaction Status Date / Time Penicillins Allergy Rash/Hives Verified 12/26/19 15:54 Physical Examination - Vital Signs Vital Signs: Vital Signs Temp Pulse Resp BP Pulse Ox 12/26/19 16:44 76 20 118/82 100 12/26/19 15:15 74 20 151/91 96 12/26/19 14:45 79 20 132/87 94 L 12/26/19 14:15 80 20 108/72 95 12/26/19 14:00 80 20 129/78 95 12/26/19 13:45 79 20 122/82 95 12/26/19 13:30 77 20 139/89 95 12/26/19 13:21 82 20 127/76 98 12/26/19 13:06 98.4 F 79 20 124/89 95 12/26/19 12:50 98.1 F 70 18 141/80 98 Intake and Output 12/26/19 12/26/19 12/26/19 06:59 14:59 22:59 Other: Weight 83.007 kg On examination patient is a middle aged male, in no distress. Patient is alert and awake oriented to time place and person. Speech and language functions are normal. Attention and concentration fund of knowledge is adequate. On cranial nerve exam his pupils are round and reactive to light, visual michaels are full, extraocular muscles are intact with no nystagmus. Face is symmetric, tongue protrudes the midline. Palatal elevation and sensation normal. On muscle strength testing there is no pronator drift and the strength is normal in arms and legs distally and proximally. Deltoids not checked because of his history of rotator cuff problems. Reflexes are symmetric and plantars downgoing. Sensory touch is equal. No ataxia for [id number] testing. Tone and bulk of muscles normal. Gait appears normal. No carotid bruit or murmur. Peripheral pulses present. Results - Laboratory Findings CBC and BMP: 12/26/19 13:00 12/26/19 13:00 Abnormal Lab Findings: Abnormal Labs 12/26/19 12/26/19 12:57 13:00 Sodium 136 L Glucose 115 H POC Glucose (mg/dL) 136 H Assessment and Plan Assessment: * 59-year-old male admitted with right-sided symptoms. Current examination is normal. NIH stroke scale 0. Rule out TIA. * Chronic neck pain. Plan: * Patient underwent MRI of the brain, which was normal with no acute process. * Patient also had a negative CTA of head and neck. * We will check 2-D echo to rule out any embolic source. * We will check fasting a.m. lipid panel and hemoglobin A1c. * Patient was recommended tobacco cessation. * Patient will be started on aspirin 325 mg daily for stroke prevention.
[2019-12-26] MEDS: ASPIRIN 325 MG TAB PO SCH (19:27)
[2019-12-26 20:13] LABS: Cholesterol 180 mg/dL (<200); HDL Cholesterol 36 mg/dL (40-60); LDL Cholesterol,Calculated 105 mg/dL (0-99); Triglycerides 193 mg/dL (<150)
[2019-12-26] MEDS ORDERED: ATORVASTATIN 40 MG TAB PO SCH (21:00)
--- NOTE | 2019-12-26 23:54 | P.HPIM ---
History of Present Illness H&P Date: 12/26/19 Chief Complaint: Right-sided weakness History of presenting complaint: This is a 59-year-old patient of Dr. holt. Chronic stable medical conditions include fibromyalgia, obstructive sleep apnea does not use CPAP machine, chronic low back pain, anxiety, bilateral carpal tunnel syndrome. Patient is moaning noticed that his right arm was having numbness tingling in that became weak he could not lift it up in the right leg became weak. He became a bit confused and was brought to the ER. Apparently not been feeling well for some time. Also not been sleeping well for at least a week. Patient has some chronic neck pain. Robot neurology was consulted and patient is offered TPA. He declined the same. Neurology was consulted. Patient's ex- who lives with him is present with him. Review of systems: GEN.: Tired EYES: None HEENT: None NECK: None RESPIRATORY: Occasional wheezing or shortness of breath CARDIOVASCULAR: None GASTROINTESTINAL: None GENITOURINARY: None MUSCULOSKELETAL: Pain in different joints including the back LYMPHATICS: None HEMATOLOGICAL: None PSYCHIATRY: Anxious NEUROLOGICAL: Doesn't sleep well, as above Past medical history to include: Fibromyalgia, obstructive sleep apnea does not use CPAP, hypothyroid, bilateral carpal tunnels syndrome, chronic low back and neck pain, anxiety, insomnia Social history: Patient is a smoker and his ex- is on disability. Family history: Reviewed, noncontributory to presentation Physical examination: VITAL SIGNS: 98.1, 70, 18, 141/80, 98% on room air GENERAL: BMI 27.8, sitting up slightly anxious. EYES: Pupils equal. Conjunctiva normal. HEENT: External appearance of nose and ears normal, oral cavity grossly normal. NECK: JVD not raised; masses not palpable. HEART: First and second heart sounds are normal; no edema. LUNGS: Respiratory rate normal; decreased breath sounds some wheezing. ABDOMEN: Soft, nontender, liver spleen not palpable, no masses palpable. PSYCH: Alert and oriented x3; mood and affect anxiousl. NEUROLOGICAL: Cranial nerves grossly intact; questionable mild facial asymmetry, power on the right side is 4/5, sensation grossly preserved. LYMPHATICS: No lymph nodes palpable in the axilla and neck INVESTIGATIONS, reviewed in the clinical context: White count 7.7 hemoglobin 16.6 platelets 327 potassium 4.2 creatinine 0.7 LDL 105 Computed tomography scan brain-negative CT angiogram head and neck-some congenital variation otherwise unremarkable Chest x-ray film personally reviewed by me shows hyperinflation some prominent pulmonary artery EKG tracing personally reviewed by me-sinus rhythm, PVC Brain MRI-acute none reported Assessment: -This is a patient presents with right-sided weakness some confusion and/or refused to TPA has some subtle weakness left on the right side with MRI and computed tomography scan of the brain being negative. -COPD in a current smoker -Chronic nicotine dependence patient cigarette smoker -Chronic sleep disorder, unspecified -Chronic fibromyalgia -Chronic neck and lower back pain Plan: Patient started on aspirin and Lipitor. Neurology was consulted. Neuro checks in place. We'll consult PTOT. Lovenox for DVT prophylaxis. DuoNeb 4 times a day with inhaled steroid. Other home medications are continued. Care was discussed with the patient and his exercise with him. Smoke cessation counseling: This was done with the patient. Nicotine patch is being given. More than 3 minutes was spent for this Past Medical History Past Medical History: Fibromyalgia, Sleep Apnea/CPAP/BIPAP, Thyroid Disorder Additional Past Medical History / Comment(s): DOES NOT USE CPAP. KARTHIK CARPAL TUNNEL PROBS. CHRONIC LOW BACK/NECK PAIN. History of Any Multi-Drug Resistant Organisms: None Reported Past Surgical History: Appendectomy, Orthopedic Surgery Additional Past Surgical History / Comment(s): RT. HAND SURGERY S. COLONOSCOPY 2010. Past Anesthesia/Blood Transfusion Reactions: No Reported Reaction Past Psychological History: Anxiety Smoking Status: Current every day smoker Past Alcohol Use History: None Reported Past Drug Use History: None Reported Medications and Allergies Home Medications Medication Instructions Recorded Confirmed Type oxyCODONE HCL [oxyCODONE HCL (IR)] 30 mg PO Q6H PRN 08/09/19 12/26/19 History Allergies Allergy/AdvReac Type Severity Reaction Status Date / Time Penicillins Allergy Rash/Hives Verified 12/26/19 15:54 Physical Exam Vitals: Vital Signs Temp Pulse Resp BP Pulse Ox 12/26/19 21:14 70 18 118/84 100 12/26/19 16:44 76 20 118/82 100 12/26/19 15:15 74 20 151/91 96 12/26/19 14:45 79 20 132/87 94 L 12/26/19 14:15 80 20 108/72 95 12/26/19 14:00 80 20 129/78 95 12/26/19 13:45 79 20 122/82 95 12/26/19 13:30 77 20 139/89 95 12/26/19 13:21 82 20 127/76 98 12/26/19 13:06 98.4 F 79 20 124/89 95 12/26/19 12:50 98.1 F 70 18 141/80 98 Intake and Output 12/26/19 12/26/19 12/27/19 14:59 22:59 06:59 Other: Weight 83.007 kg Results CBC & Chem 7: 12/26/19 13:00 12/26/19 13:00 Labs: Abnormal Lab Results - Last 24 Hours (Table) 12/26/19 12/26/19 12/26/19 Range/Units 12:57 13:00 13:00 Sodium 136 L (137-145) mmol/L Glucose 115 H (74-99) mg/dL POC Glucose (mg/dL) 136 H (75-99) mg/dL Triglycerides 193 H (<150) mg/dL LDL Cholesterol, Calc 105 H (0-99) mg/dL HDL Cholesterol 36 L (40-60) mg/dL
[2019-12-27] MEDS: ENOXAPARIN 40 MG/0.4 ML SYRINGE SQ SCH ×2 (00:10→11:02)
[2019-12-27] MEDS: NICOTINE 14MG/24HR PATCH TRANSDERM SCH ×2 (00:10→08:32)
[2019-12-27] MEDS: IPRATROPIUM-ALBUTEROL 3 ML NEB INHALATION SCH ×2 (07:15→11:01)
[2019-12-27] MEDS ORDERED: BUDESONIDE 1 MG/2 ML NEBU INHALATION SCH (08:00)
[2019-12-27] MEDS: ASPIRIN 325 MG TAB PO SCH (08:31)
[2019-12-27] MEDS ORDERED: INFLUENZA VACCINE (6 MOS+) 60 MCG/0.5 ML SYRINGE IM ONE (09:00)
[2019-12-27 11:04] VITALS: BP 121/70; PULSE 80; RESP 20; TEMP 97.8
--- NOTE | 2019-12-27 12:49 | ECHOF ---
Referral Reason:TIA MEASUREMENTS -------- HEIGHT: 172.7 cm WEIGHT: 77.1 kg BP: 107/70 RVIDd: 3.5 cm (< 3.3) IVSd: 1.2 cm (0.6 - 1.1) LVIDd: 3.6 cm (3.9 - 5.3) LVPWd: 1.3 cm (0.6 - 1.1) IVSs: 1.9 cm LVIDs: 2.5 cm LVPWs: 1.8 cm LA Diam: 3.2 cm (2.7 - 3.8) LAESV Index (A-L): 25.34 ml/m Ao Diam: 3.5 cm (2.0 - 3.7) AV Cusp: 1.9 cm (1.5 - 2.6) MV EXCURSION: 16.703 mm (> 18.000) MV EF SLOPE: 50 mm/s (70 - 150) EPSS: 0.7 cm MV E Yariel: 0.63 m/s MV DecT: 365 ms MV A Yariel: 0.92 m/s MV E/A Ratio: 0.69 RAP: 5.00 mmHg RVSP: 24.48 mmHg TAPSE: 18.81 mm FINDINGS -------- Sinus rhythm. This was a technically good study. The left ventricular size is normal. There is mild concentric left ventricular hypertrophy. Overa ll left ventricular systolic function is normal with, an EF between 60 - 65 %. The right ventricle is mildly enlarged. Normal LA size by volume 22+/-6 ml/m2. The right atrium is normal in size. Interatrial and interventricular septum intact. The aortic valve is trileaflet and appears structurally normal. There is trace mitral regurgitation. Mild tricuspid regurgitation present. Right ventricular systolic pressure is normal at < 35 mmHg. There is no pulmonic regurgitation present. The aortic root size is normal. Normal inferior vena cava with normal inspiratory collapse consistent with estimated right atrial pre ssure of 5 mmHg. There is no pericardial effusion. CONCLUSIONS -------- 1. Sinus rhythm. 2. This was a technically good study. 3. The left ventricular size is normal. 4. There is mild concentric left ventricular hypertrophy. 5. Overall left ventricular systolic function is normal with, an EF between 60 - 65 %. 6. The right ventricle is mildly enlarged. 7. Normal LA size by volume 22+/-6 ml/m2. 8. The right atrium is normal in size. 9. Interatrial and interventricular septum intact. 10. The aortic valve is trileaflet and appears structurally normal. 11. There is trace mitral regurgitation. 12. Mild tricuspid regurgitation present. 13. Right ventricular systolic pressure is normal at < 35 mmHg. 14. There is no pulmonic regurgitation present. 15. The aortic root size is normal. 16. Normal inferior vena cava with normal inspiratory collapse consistent with estimated right atrial pressure of 5 mmHg. 17. There is no pericardial effusion. SCOOP FILLER: Michelle Juares RDCS
[2019-12-27 13:28] LABS: Hemoglobin A1C 5.5 % (4.0-6.0)
--- NOTE | 2019-12-27 14:04 | P.PN ---
Subjective Progress Note Date: 12/27/19 Patient feels fine. Offers no new focal symptoms. Patient's was also present today. Objective - Vital Signs Vital signs: Vital Signs Temp 97.8 F 12/27/19 11:03 Pulse 80 12/27/19 11:11 Resp 20 12/27/19 11:03 BP 121/70 12/27/19 11:03 Pulse Ox 96 12/27/19 11:03 Intake & Output 12/26/19 12/27/19 12/27/19 18:59 06:59 18:59 Intake Total 1200 Balance 1200 Weight 83.007 kg 77.5 kg Intake: Oral 1200 Other: Voiding Method Toilet Toilet # Voids 1 - Exam Patient's mental status, speech and language functions are normal. Muscle strength is normal. Gait normal. - Labs CBC & Chem 7: 12/26/19 13:00 12/26/19 13:00 Labs: Abnormal Lab Results - Last 24 Hours (Table) 12/26/19 Range/Units 13:00 Triglycerides 193 H (<150) mg/dL LDL Cholesterol, Calc 105 H (0-99) mg/dL HDL Cholesterol 36 L (40-60) mg/dL Assessment and Plan Assessment: * 59-year-old male admitted with right-sided symptoms. Current examination is normal. NIH stroke scale 0. MRI of brain negative for any acute stroke. Rule out TIA. * Chronic neck pain. Plan: * Patient underwent MRI of the brain, which was normal with no acute process. * Patient also had a negative CTA of head and neck. * 2-D echo was performed, which revealed left-ventricular ejection fraction 60- 65%. Normal left atrial size. No obvious embolic source identified. It was a good study. * Fasting a.m. lipid panel showed cholesterol 180, LDL 105, HDL 36 and triglycerides were 93. * Hemoglobin A1c normal 5.5. * Patient was recommended tobacco cessation. He does appear motivated. * Telemetry did not show any atrial fibrillation. * Continue aspirin 325 mg daily for stroke prevention. * Patient's was asking about BEV. I suggested that BEV does not appear to be indicated at this time, with normal 2-D echo. He just needs to modify his stroke risk factors including all mentioned above. They will follow-up with the neurologist as an outpatient. If they want to have it, it can be pursued as an outpatient. * Neurologically clear for discharge.
--- NOTE | 2019-12-27 22:38 | P.DS ---
Providers Date of admission: 12/26/19 15:29 Expected date of discharge: 12/27/19 Attending physician: Julian Membreno Consults: 12/26/19 15:29 Consult Physician Urgent Consulting Provider: Ridge Herrera Consult Reason/Comments: RUE/RLE weakness Do you want consulting provider notified?: Yes Primary care physician: [facility] Course: Chief Complaint: Right-sided weakness History of presenting complaint: This is a 59-year-old patient of Dr. gillette. Chronic stable medical conditions include fibromyalgia, obstructive sleep apnea does not use CPAP machine, chronic low back pain, anxiety, bilateral carpal tunnel syndrome. Patient is moaning noticed that his right arm was having numbness tingling in that became weak he could not lift it up in the right leg became weak. He became a bit confused and was brought to the ER. Apparently not been feeling well for some time. Also not been sleeping well for at least a week. Patient has some chronic neck pain. [facility] neurology was consulted and patient is offered TPA. He declined the same. Neurology was consulted. Patient's ex- who lives with him is present with him. Patient underwent computed tomography scan of the brain, CT angiogram, brain MRI.: Unremarkable. Today-feeling much better.. Discussed with neurology. Okay to discharge Consultation: Dr. James from neurology Physical examination: VITAL SIGNS: 97.8, 75, 20, 121/70, 96% on room air GENERAL: BMI 27.8, sitting up slightly anxious. EYES: Pupils equal. Conjunctiva normal. HEENT: External appearance of nose and ears normal, oral cavity grossly normal. NECK: JVD not raised; masses not palpable. HEART: First and second heart sounds are normal; no edema. LUNGS: Respiratory rate normal; decreased breath sounds some wheezing. ABDOMEN: Soft, nontender, liver spleen not palpable, no masses palpable. PSYCH: Alert and oriented x3; mood and affect anxiousl. NEUROLOGICAL: Cranial nerves grossly intact; questionable mild facial asymmetry, power on the right side improved. INVESTIGATIONS, reviewed in the clinical context: White count 7.7 hemoglobin 16.6 platelets 327 potassium 4.2 creatinine 0.7 LDL 105 Computed tomography scan brain-negative CT angiogram head and neck-some congenital variation otherwise unremarkable Chest x-ray film personally reviewed by me shows hyperinflation some prominent pulmonary artery EKG tracing personally reviewed by me-sinus rhythm, PVC Brain MRI-acute none reported 2-D echo-EF 60-65% Assessment: -TIA. -COPD in a current smoker -Chronic nicotine dependence patient cigarette smoker -Chronic sleep disorder, unspecified -Chronic fibromyalgia -Chronic neck and lower back pain Disposition: Home Patient Condition at Discharge: Stable Plan - Discharge Summary Discharge Rx Participant: Yes New Discharge Prescriptions: New Aspirin 81 mg PO DAILY #30 chewable Ipratropium [place] [Atrovent Hfa] 2 puff INHALATION QID #1 inhaler Nicotine 14Mg/24Hr Patch [Habitrol] 1 patch TRANSDERM DAILY #14 patch Atorvastatin [Lipitor] 40 mg PO HS #30 tab Beclomethasone Dipropionate [Qvar 40 mcg Redihaler] 1 puff INHALATION DAILY #1 inhaler Albuterol Inhaler [Ventolin Hfa Inhaler] 1 - 2 puff INHALATION RT-Q6H PRN #1 inhaler PRN Reason: Wheezing Melatonin 3 mg PO HS #30 tablet Continue oxyCODONE HCL [oxyCODONE HCL (IR)] 30 mg PO Q6H PRN PRN Reason: Pain Discharge Medication List oxyCODONE HCL [oxyCODONE HCL (IR)] 30 mg PO Q6H PRN 08/09/19 [History] Albuterol Inhaler [Ventolin Hfa Inhaler] 1 - 2 puff INHALATION RT-Q6H PRN #1 inhaler 12/27/19 [Rx] Aspirin 81 mg PO DAILY #30 chewable 12/27/19 [Rx] Atorvastatin [Lipitor] 40 mg PO HS #30 tab 12/27/19 [Rx] Beclomethasone Dipropionate [Qvar 40 mcg Redihaler] 1 puff INHALATION DAILY #1 inhaler 12/27/19 [Rx] Ipratropium [place] [Atrovent Hfa] 2 puff INHALATION QID #1 inhaler 12/27/19 [Rx] Melatonin 3 mg PO HS #30 tablet 12/27/19 [Rx] Nicotine 14Mg/24Hr Patch [Habitrol] 1 patch TRANSDERM DAILY #14 patch 12/27/19 [Rx] Follow up Appointment(s)/Referral(s): Eran Gillette DO [Primary Care Provider] - 01/10/20 9:20 am (with Nurse Practitioner.) Clinton You DO [Doctor of Osteopathic Medicine] - 1 Week (Please call to schedule appointment) Suzie Saldana MD [STAFF PHYSICIAN] - 12/28/19 10:30 am (Please arrive a few minutes early for new patient paperwork.) Patient Instructions/Handouts: Transient Ischemic Attack (DC), How to Stop Smoking (DC) Activity/Diet/Wound Care/Special Instructions: CVA/TIA 1. Call your physician with any worsening symptoms of stroke such as, increased weakness, new numbness or tingling, mental status changes, visual changes or new loss of sensation. 2. Stroke prevention methods include lowering cholesterol, thinning your blood, preventing high blood pressure, keeping tight control of your diabetes, increasing exercise/activity, smoking cessation and alcohol cessation. Discharge Disposition: HOME SELF-CARE
== END 2019-12-27 15:51 | disposition home or self-care (01) ==
LOC: EC 12:48 → 3SCARD 15:29
PROVIDERS: ADMIT Hospitalist; ATTEND Hospitalist
DX: G45.9 Transient cerebral ischemic attack, unspecified (principal); J44.9 Chronic obstructive pulmonary disease, unspecified; F17.210 Nicotine dependence, cigarettes, uncomplicated; G47.33 Obstructive sleep apnea (adult) (pediatric); G89.29 Other chronic pain; M54.5 Low back pain; M79.7 Fibromyalgia; E03.9 Hypothyroidism, unspecified; F41.9 Anxiety disorder, unspecified; I49.3 Ventricular premature depolarization; I45.19 Other right bundle-branch block; G47.00 Insomnia, unspecified; G31.9 Degenerative disease of nervous system, unspecified; M50.31 Other cervical disc degeneration, high cervical region; M48.02 Spinal stenosis, cervical region; Z79.891 Long term (current) use of opiate analgesic; Z88.0 Allergy status to penicillin; Z98.890 Other specified postprocedural states; Z90.49 Acquired absence of other specified parts of digestive tract; Z86.69 Personal history of other diseases of the nervous system and sense organs
CPT/HCPCS: 96372; 96374; 99285; 36415; 94640 ×2; 94760; 93005; 93306; 97161; 97165; 80061; 80053; 82550; 82553; 84484; 85025; 85610; 85730; 83036; 71046; 70496; 70450; 70498; 70553; 72141; G0378 ×2; S4990; J2060; J1650; A9585; Q9967

== ENCOUNTER 2020-07-24 08:59 | Emergency (ER) | payer OTHER ==
[2020-07-24 09:06] VITALS: TEMP 97.5
[2020-07-24 10:25] LABS: Amphetamine Screen,Urine Not Detected (NotDetected); Barbiturate Screen,Urine Not Detected (NotDetected); Benzodiazepines Screen,Urine Detected (NotDetected); Cocaine Screen,Urine Not Detected (NotDetected); Methadone Screen, Urine Not Detected (NotDetected); Opiate Screen,Urine Detected (NotDetected); Oxycodone Screen, Urine Not Detected (NotDetected); Phencyclidine Screen,Urine Not Detected (NotDetected); Tricyclic Antidepressant,Urine Not Detected (NotDetected); Urn Cannabinoid Scrn Not Detected (NotDetected)
--- NOTE | 2020-07-24 10:54 | ED ---
General Adult HPI - General Chief complaint: Anxiety Stated complaint: Unable to sleep Time Seen by Provider: 07/24/20 09:00 Source: patient, RN notes reviewed, old records reviewed Mode of arrival: ambulatory Limitations: no limitations - History of Present Illness Initial comments: this is a 60-year-old male who presents to the emergency Department stating he's been having panic attacks. Patient states his been ongoing for 10 years. Patient states he tried multiple remedies and they have not helped. Patient states over the last 2 weeks is gotten worse and he has slept about 5 days he can continue going on with this. Patient denies being suicidal but is afraid because of his exhaust he is going to get hurt. Patient denies any physical complaints today. Patient denies any chest pain difficulty breathing shortness of breath. Patient denies abdominal pain patient denies nausea vomiting diarrhea. Patient denies any recent fever chills or cough. - Related Data Home Medications Medication Instructions Recorded Confirmed oxyCODONE HCL [oxyCODONE HCL (IR)] 30 mg PO QID 08/09/19 07/24/20 Albuterol Inhaler [Ventolin Hfa 1 - 2 puff INHALATION RT-Q6H PRN 07/24/20 07/24/20 Inhaler] Alfuzosin HCl [Alfuzosin HCl ER] 10 mg PO HS 07/24/20 07/24/20 Atorvastatin [Lipitor] 20 mg PO HS 07/24/20 07/24/20 EPINEPHrine (Auto Inject) [Epipen] 0.3 mg IM ONCE PRN 07/24/20 07/24/20 Naloxone (Mdv) [Narcan (Mdv)] 0.4 mg IM ONCE PRN 07/24/20 07/24/20 Previous Rx's Medication Instructions Recorded Aspirin 81 mg PO DAILY #30 chewable 12/27/19 Allergies Allergy/AdvReac Type Severity Reaction Status Date / Time Penicillins Allergy Rash/Hives Verified 07/24/20 10:04 Review of Systems ROS Statement: Those systems with pertinent positive or pertinent negative responses have been documented in the HPI. ROS Other: All systems not noted in ROS Statement are negative. Past Medical History Past Medical History: CVA/TIA, Fibromyalgia, Sleep Apnea/CPAP/BIPAP, Thyroid Disorder Additional Past Medical History / Comment(s): DOES NOT USE CPAP. KARTHIK CARPAL TUNNEL PROBS. CHRONIC LOW BACK/NECK PAIN. History of Any Multi-Drug Resistant Organisms: None Reported Past Surgical History: Appendectomy, Orthopedic Surgery Additional Past Surgical History / Comment(s): RT. HAND SURGERY S. COLONOSCOPY 2010. Past Anesthesia/Blood Transfusion Reactions: No Reported Reaction Past Psychological History: Anxiety Smoking Status: Current some day smoker Past Alcohol Use History: Rare Past Drug Use History: None Reported - Past Family History Father Family Medical History: Diabetes Mellitus, Pulmonary Embolus Mother Family Medical History: COPD General Exam - General Exam Comments Initial Comments: GENERAL: Patient is well-developed and well-nourished. Patient is nontoxic and well- hydrated and is in mild distress. ENT: Neck is soft and supple. No significant lymphadenopathy is noted. Oropharynx is clear. Moist mucous membranes. Neck has full range of motion without eliciting any pain. EYES: The sclera were anicteric and conjunctiva were pink and moist. Extraocular movements were intact and pupils were equal round and reactive to light. Eyelids were unremarkable. PULMONARY: Unlabored respirations. Good breath sounds bilaterally. No audible rales rhonchi or wheezing was noted. CARDIOVASCULAR: There is a regular rate and rhythm without any murmurs gallops or rubs. ABDOMEN: Soft and nontender with normal bowel sounds. SKIN: Skin is clear with no lesions or rashes and otherwise unremarkable. NEUROLOGIC: Patient is alert and oriented x3. Cranial nerves II through XII are grossly intact. Motor and sensory are also intact. Normal speech, volume and content. Symmetrical smile. MUSCULOSKELETAL: Normal extremities with adequate strength and full range of motion. LYMPHATICS: No significant lymphadenopathy is noted PSYCHIATRIC: Normal psychiatric evaluation. Limitations: no limitations Course Vital Signs 07/24/20 09:00 Temperature 97.5 F L Pulse Rate 92 Respiratory 18 Rate Blood Pressure 152/82 O2 Sat by Pulse 98 Oximetry Medical Decision Making - Lab Data Lab Results 07/24/20 Range/Units 09:47 Urine Opiates Screen Detected H (NotDetected) Ur Oxycodone Screen Not Detected (NotDetected) Urine Methadone Screen Not Detected (NotDetected) Ur Propoxyphene Screen Not Detected (NotDetected) Ur Barbiturates Screen Not Detected (NotDetected) U Tricyclic Antidepress Not Detected (NotDetected) Ur Phencyclidine Scrn Not Detected (NotDetected) Ur Amphetamines Screen Not Detected (NotDetected) U Methamphetamines Scrn Not Detected (NotDetected) U Benzodiazepines Scrn Detected H (NotDetected) Urine Cocaine Screen Not Detected (NotDetected) U Marijuana (THC) Screen Not Detected (NotDetected) Disposition Clinical Impression: Acute anxiety, Panic attack, Chronic pain Disposition: HOME SELF-CARE Instructions (If sedation given, give patient instructions): Generalized Anxiety Disorder (ED) Additional Instructions: Patient will follow-up with [facility] Is patient prescribed a controlled substance at d/c from ED?: No Referrals: Eran Gillette DO [Primary Care Provider] - 1-2 days Time of Disposition: 13:56
[2020-07-24 14:18] VITALS: BP 122/85; PULSE 74; RESP 16
== END 2020-07-24 14:18 | disposition home or self-care (01) ==
LOC: EC 08:59
DX: F41.9 Anxiety disorder, unspecified (principal); F41.0 Panic disorder [episodic paroxysmal anxiety]; G89.29 Other chronic pain; M54.5 Low back pain; M54.2 Cervicalgia; G47.30 Sleep apnea, unspecified; F17.200 Nicotine dependence, unspecified, uncomplicated; Z79.891 Long term (current) use of opiate analgesic; Z79.899 Other long term (current) drug therapy; Z88.0 Allergy status to penicillin; Z99.89 Dependence on other enabling machines and devices; Z86.73 Personal history of transient ischemic attack (TIA), and cerebral infarction without residual deficits
CPT/HCPCS: 80306; 82075; 99284

== ENCOUNTER 2020-10-26 14:13 | Emergency (ER) | payer OTHER ==
[2020-10-26 14:18] VITALS: RESP 18; TEMP 98.5
[2020-10-26] MEDS ORDERED: ASPIRIN 81 MG PO STA (14:26)
[2020-10-26 14:43] LABS: Basophils # (A) 0.1 k/uL (0-0.2); Basophils % (A) 1 %; Eosinophils # (A) 0.2 k/uL (0-0.7); Eosinophils % (A) 3 %; HCT 46.5 % (39.0-53.0); HGB 16.3 gm/dL (13.0-17.5); Lymphocytes # (A) 2.4 k/uL (1.0-4.8); Lymphocytes % (A) 27 %; MCV 94.1 fL (80.0-100.0); Mean Platelet Volume 7.1; Monocytes # (A) 0.4 k/uL (0-1.0); Monocytes % (A) 5 %; Neutrophils # (A) 5.5 k/uL (1.3-7.7); Neutrophils % (A) 62 %; Platelet Count 283 k/uL (150-450); RBC 4.94 m/uL (4.30-5.90); WBC 8.9 k/uL (3.8-10.6)
[2020-10-26 14:53] LABS: Partial Thromboplastin Time 25.4 sec (22.0-30.0)
[2020-10-26 15:04] LABS: ALT 43 U/L (4-49); AST 23 U/L (17-59); African American GFR (CKD) >90 (>60 ml/min/1.73 sqM); Albumin 4.5 g/dL (3.5-5.0); Alkaline Phosphatase 69 U/L (38-126); Anion Gap 5 mmol/L; Blood Urea Nitrogen 21 mg/dL (9-20); Calcium 9.3 mg/dL (8.4-10.2); Carbon Dioxide 27 mmol/L (22-30); Chloride 105 mmol/L (98-107); Glucose 101 mg/dL (74-99); Magnesium 2.3 mg/dL (1.6-2.3); Non-African American GFR(CKD) >90 (>60 ml/min/1.73 sqM); Potassium 4.4 mmol/L (3.5-5.1); Sodium 137 mmol/L (137-145); Total Bilirubin 0.5 mg/dL (0.2-1.3)
--- NOTE | 2020-10-26 15:43 | XR ---
EXAMINATION TYPE: XR chest 2V DATE OF EXAM: 10/26/2020 COMPARISON: Prior chest x-ray 12/26/2019 HISTORY: Chest pain TECHNIQUE: Frontal and lateral views of the chest are obtained. FINDINGS: There is no focal air space opacity, pleural effusion, or pneumothorax seen. The cardiac silhouette size is within normal limits. The osseous structures are intact. IMPRESSION: No acute cardiopulmonary process.
--- NOTE | 2020-10-26 16:12 | ED ---
General Adult HPI - General Chief complaint: Chest Pain Stated complaint: Chest Pain Time Seen by Provider: 10/26/20 14:25 Source: patient, RN notes reviewed, old records reviewed Mode of arrival: wheelchair Limitations: no limitations - History of Present Illness Initial comments: 60-year-old male patient to ED for evaluation. Patient reports that for the last 6 weeks or so since he started a medication Celexa when he lays down at night he sometimes has a dull ache in his chest that is also sometimes sharp. Patient reports that he was having pain last night. He reports that he had some transient pain early this morning as well. He does report that he had a stress test which was reportedly -2 years ago. This was a chemical stress test. He is a smoker no history of diabetes. No known family history of heart disease. He denies any difficulty breathing denies any pain at time of evaluation. He denies any other complaints. Systemic: Pt denies fatigue, fever/chills, rash. Pt denies weakness, night sweats, weight loss. Neuro: Pt denies headache, visual disturbances, syncope or pre-syncope. HEENT: Pt denies ocular discharge or irritation, otalgia, rhinorrhea, pharyngitis or notable lymphadenopathy. Cardiopulmonary: Pt denies SOB, heart palpitations, dyspnea on exertion. Abdominal/GI: Pt denies abdominal pain, n/v/d. : Pt denies dysuria, burning w/ urination, frequency/urgency. Denies new onset urinary or bowel incontinence. MSK: Pt denies myalgia, loss of strength or function in extremities. Neuro: Pt denies new onset weakness, paresthesias. - Related Data Home Medications Medication Instructions Recorded Confirmed oxyCODONE HCL [oxyCODONE HCL (IR)] 30 mg PO QID 08/09/19 07/24/20 Albuterol Inhaler [Ventolin Hfa 1 - 2 puff INHALATION RT-Q6H PRN 07/24/20 07/24/20 Inhaler] Alfuzosin HCl [Alfuzosin HCl ER] 10 mg PO HS 07/24/20 07/24/20 Atorvastatin [Lipitor] 20 mg PO HS 07/24/20 07/24/20 EPINEPHrine (Auto Inject) [Epipen] 0.3 mg IM ONCE PRN 09/08/20 09/08/20 Naloxone (Mdv) [Narcan (Mdv)] 0.4 mg IM ONCE PRN 07/24/20 07/24/20 Previous Rx's Medication Instructions Recorded Aspirin 81 mg PO DAILY #30 chewable 12/27/19 Allergies Allergy/AdvReac Type Severity Reaction Status Date / Time Penicillins Allergy Rash/Hives Verified 10/26/20 14:18 Review of Systems ROS Statement: Those systems with pertinent positive or pertinent negative responses have been documented in the HPI. ROS Other: All systems not noted in ROS Statement are negative. Past Medical History Past Medical History: CVA/TIA, Fibromyalgia, Sleep Apnea/CPAP/BIPAP, Thyroid Disorder Additional Past Medical History / Comment(s): DOES NOT USE CPAP. KARTHIK CARPAL TUNNEL PROBS. CHRONIC LOW BACK/NECK PAIN. History of Any Multi-Drug Resistant Organisms: None Reported Past Surgical History: Appendectomy, Orthopedic Surgery Additional Past Surgical History / Comment(s): RT. HAND SURGERY S. COLONOSCOPY 2010. Past Anesthesia/Blood Transfusion Reactions: No Reported Reaction Past Psychological History: Anxiety, Depression Smoking Status: Former smoker Past Alcohol Use History: Rare Past Drug Use History: None Reported - Past Family History Father Family Medical History: Diabetes Mellitus, Pulmonary Embolus Mother Family Medical History: COPD General Exam - General Exam Comments Initial Comments: Constitutional: NAD, AOX3, Pt has pleasant affect. HEENT: NC/AT, trachea midline, neck supple, no lymphadenopathy. External ears appear normal, without discharge. Mucous membranes moist. Eyes PERRLA, EOM intact. There is no scleral icterus. No pallor noted. Cardiopulmonary: RRR, no murmurs, rubs or gallops, no JVD noted. Lungs CTAB in anterior and posterior michaels. No peripheral edema. Abdominal exam: Abdomen soft and non-distended. Abdomen non-tender to palpation in all 4 quadrants. Bowel sounds active in LLQ. No hepatosplenomegaly. No ecchymosis Neuro: CN II-XII grossly intact. No nuchal rigidity. No raccon eyes, no barnard sign. MSK: No posterior calf tenderness bilaterally, homans sign negative bilaterally. Posterior tibialis and radial pulse +2 bilaterally. Sensation intact in upper and lower extremities. Full active ROM in upper and lower extremities, 5/5 stregnth. Limitations: no limitations Course Vital Signs 10/26/20 14:15 Temperature 98.5 F Pulse Rate 63 Respiratory 18 Rate Blood Pressure 172/85 O2 Sat by Pulse 98 Oximetry Medical Decision Making - Medical Decision Making 60-year-old male patient to ED for evaluation of chest pain. Patient has been chest pain-free with exception of a small episode of pain this morning. She reports having essentially daily pain mostly at night and at rest. It is left parasternal sometimes right parasternal he reports that his symptoms don't achy sometimes sharp. Denies any shortness of breath. Vital signs are stable, afebrile. Physical exam is negative for acute pathology. EKG is nonischemic. Laboratory investigations are unremarkable. Troponin is negative. Chest x-ray is negative for acute pathology. I did recommend patient admission to hospital, this the patient declines. Patient will be discharged with outpatient cardiology follow-up and return precautions. Case discussed with Dr. Bacon. - Lab Data Result diagrams: 10/26/20 14:29 10/26/20 14:29 Lab Results 10/26/20 10/26/20 10/26/20 Range/Units 14:29 14:29 14:29 WBC 8.9 (3.8-10.6) k/uL RBC 4.94 (4.30-5.90) m/uL Hgb 16.3 (13.0-17.5) gm/dL Hct 46.5 (39.0-53.0) % MCV 94.1 (80.0-100.0) fL MCH 33.0 (25.0-35.0) pg MCHC 35.0 (31.0-37.0) g/dL RDW 12.0 (11.5-15.5) % Plt Count 283 (150-450) k/uL MPV 7.1 Neutrophils % 62 % Lymphocytes % 27 % Monocytes % 5 % Eosinophils % 3 % Basophils % 1 % Neutrophils # 5.5 (1.3-7.7) k/uL Lymphocytes # 2.4 (1.0-4.8) k/uL Monocytes # 0.4 (0-1.0) k/uL Eosinophils # 0.2 (0-0.7) k/uL Basophils # 0.1 (0-0.2) k/uL PT 10.0 (9.0-12.0) sec INR 1.0 (<1.2) APTT 25.4 (22.0-30.0) sec Sodium 137 (137-145) mmol/L Potassium 4.4 (3.5-5.1) mmol/L Chloride 105 (98-107) mmol/L Carbon Dioxide 27 (22-30) mmol/L Anion Gap 5 mmol/L BUN 21 H (9-20) mg/dL Creatinine 0.62 L (0.66-1.25) mg/dL Est GFR (CKD-EPI)AfAm >90 (>60 ml/min/1.73 sqM) Est GFR (CKD-EPI)NonAf >90 (>60 ml/min/1.73 sqM) Glucose 101 H (74-99) mg/dL Calcium 9.3 (8.4-10.2) mg/dL Magnesium 2.3 (1.6-2.3) mg/dL Total Bilirubin 0.5 (0.2-1.3) mg/dL AST 23 (17-59) U/L ALT 43 (4-49) U/L Alkaline Phosphatase 69 (38-126) U/L Troponin I (0.000-0.034) ng/mL NT-Pro-B Natriuret Pep pg/mL Total Protein 7.0 (6.3-8.2) g/dL Albumin 4.5 (3.5-5.0) g/dL 10/26/20 10/26/20 Range/Units 14:29 14:29 WBC (3.8-10.6) k/uL RBC (4.30-5.90) m/uL Hgb (13.0-17.5) gm/dL Hct (39.0-53.0) % MCV (80.0-100.0) fL MCH (25.0-35.0) pg MCHC (31.0-37.0) g/dL RDW (11.5-15.5) % Plt Count (150-450) k/uL MPV Neutrophils % % Lymphocytes % % Monocytes % % Eosinophils % % Basophils % % Neutrophils # (1.3-7.7) k/uL Lymphocytes # (1.0-4.8) k/uL Monocytes # (0-1.0) k/uL Eosinophils # (0-0.7) k/uL Basophils # (0-0.2) k/uL PT (9.0-12.0) sec INR (<1.2) APTT (22.0-30.0) sec Sodium (137-145) mmol/L Potassium (3.5-5.1) mmol/L Chloride (98-107) mmol/L Carbon Dioxide (22-30) mmol/L Anion Gap mmol/L BUN (9-20) mg/dL Creatinine (0.66-1.25) mg/dL Est GFR (CKD-EPI)AfAm (>60 ml/min/1.73 sqM) Est GFR (CKD-EPI)NonAf (>60 ml/min/1.73 sqM) Glucose (74-99) mg/dL Calcium (8.4-10.2) mg/dL Magnesium (1.6-2.3) mg/dL Total Bilirubin (0.2-1.3) mg/dL AST (17-59) U/L ALT (4-49) U/L Alkaline Phosphatase (38-126) U/L Troponin I <0.012 (0.000-0.034) ng/mL NT-Pro-B Natriuret Pep 13 pg/mL Total Protein (6.3-8.2) g/dL Albumin (3.5-5.0) g/dL - EKG Data -: EKG Interpreted by Me (and Dr. Bacon ) EKG Comments: /437. Sinus rhythm with occasional premature ventricular complex. Incomplete Likely right bundle-branch block. Possible inferior infarct age indeterminate. No concern for acute ischemia at this time. Disposition Clinical Impression: Chest pain Disposition: HOME SELF-CARE Condition: Stable Instructions (If sedation given, give patient instructions): Chest Pain (ED) Additional Instructions: Follow up with PCP and tax collector. Take a daily 325 aspirin. Return immediately to ED with any new symptoms or return of pain. Is patient prescribed a controlled substance at d/c from ED?: No Referrals: Eran Gillette DO [Primary Care Provider] - 1-2 days Jordan Cisneros MD [STAFF PHYSICIAN] - 1-2 days
[2020-10-26 16:32] VITALS: BP 118/73; PULSE 75
== END 2020-10-26 16:31 | disposition home or self-care (01) ==
LOC: EC 14:13
DX: R07.9 Chest pain, unspecified (principal); M79.7 Fibromyalgia; G89.29 Other chronic pain; M54.9 Dorsalgia, unspecified; Z79.891 Long term (current) use of opiate analgesic; Z79.899 Other long term (current) drug therapy; Z87.891 Personal history of nicotine dependence; Z88.0 Allergy status to penicillin; Z86.73 Personal history of transient ischemic attack (TIA), and cerebral infarction without residual deficits
CPT/HCPCS: 36415; 71046; 80053; 83735; 83880; 84484; 85025; 85610; 85730; 93005; 99285

== ENCOUNTER → 2020-11-26 | Outpatient (CLI) | payer OTHER ==
[2020-11-26 14:15] LABS: Basophils % (A) 1 %; Eosinophils # (A) 0.4 k/uL (0-0.7); Eosinophils % (A) 6 %; HCT 45.3 % (39.0-53.0); HGB 15.2 gm/dL (13.0-17.5); Lymphocytes # (A) 2.6 k/uL (1.0-4.8); Lymphocytes % (A) 41 %; MCH 31.9 pg (25.0-35.0); MCHC 33.7 g/dL (31.0-37.0); MCV 94.9 fL (80.0-100.0); Mean Platelet Volume 6.9; Monocytes # (A) 0.4 k/uL (0-1.0); Monocytes % (A) 6 %; Neutrophils # (A) 2.9 k/uL (1.3-7.7); Neutrophils % (A) 45 %; Platelet Count 296 k/uL (150-450); RBC 4.77 m/uL (4.30-5.90); RDW 12.3 % (11.5-15.5); WBC 6.4 k/uL (3.8-10.6)
[2020-11-26 14:24] LABS: Appearance,Urine Clear (Clear); Bilirubin,Urine Negative (Negative); Blood,Urine Negative (Negative); Color,Urine Yellow; Glucose,Urine (UA) Negative (Negative); Ketones,Urine Negative (Negative); Leukocyte Esterase,Urine Negative (Negative); Nitrite,Urine Negative (Negative); PH, Urine 5.5 (5.0-8.0); Protein,Urine Negative (Negative); Specific Gravity,Urine 1.019 (1.001-1.035); Urobilinogen,Urine <2.0 mg/dL (<2.0)
[2020-11-26 14:41] LABS: African American GFR (CKD) >90 (>60 ml/min/1.73 sqM); Anion Gap 5 mmol/L; Blood Urea Nitrogen 23 mg/dL (9-20); Calcium 9.1 mg/dL (8.4-10.2); Carbon Dioxide 31 mmol/L (22-30); Chloride 104 mmol/L (98-107); Glucose 94 mg/dL (74-99); Non-African American GFR(CKD) >90 (>60 ml/min/1.73 sqM); Potassium 4.9 mmol/L (3.5-5.1); Sodium 140 mmol/L (137-145)
== END | disposition home or self-care (01) ==
LOC: LABPAT 13:06
PROVIDERS: ATTEND Urology
DX: Z01.818 Encounter for other preprocedural examination (principal); N40.1 Benign prostatic hyperplasia with lower urinary tract symptoms; N13.8 Other obstructive and reflux uropathy; R35.0 Frequency of micturition
CPT/HCPCS: 36415; 80048; 81003; 85025; 87086

== ENCOUNTER 2020-12-03 07:50 | Day surgery (SDC) | payer OTHER ==
[2020-11-28 10:15] VITALS: BMI 28.1
--- NOTE | 2020-12-02 12:51 | P.HPIHPCON ---
History of Present Illness H&P Date: 12/02/20 Chief Complaint: BPH This is 60-year-old male with history of BPH. He's been having bothersome urinary symptoms despite medical therapy, he is also been having side effects secondary to Flomax. Discussed surgical options with him. He underwent a cystoscopy which demonstrated bilateral obstructing lateral lobes. Discussed with him the option of a TURP versus a urolift. Discussed the benefit and risk of both approach. He agreed to proceed with the urolift. Discussed with him the risk which includes but not limited to bleeding, infection. Also discussed the potential that he may continue to have urinary symptoms even with surgical intervention. He understood all the risk and agreed proceed to proceed Consent for Procedure: I have explained the operation/procedure to the patient, including the risks, benefits, side effects, alternative therapies (including not receiving the proposed treatment or service), the likelihood of the patient achieving his/her goals, and potential recuperation problems for the procedure/sedation/analgesia, as well as any blood products, if indicated. I also explained to the patient the risks, benefits and side effects of the alternatives, as well as the risks related to not receiving the proposed procedure, care, treatment, or services. Past Medical History Past Medical History: COPD, CVA/TIA, Fibromyalgia, Prostate Disorder, Sleep Apnea/CPAP/BIPAP Additional Past Medical History / Comment(s): DOES NOT USE CPAP. KARTHIK CARPAL TUNNEL PROBS. CHRONIC LOW BACK/NECK PAIN. History of Any Multi-Drug Resistant Organisms: None Reported Past Surgical History: Appendectomy, Orthopedic Surgery Additional Past Surgical History / Comment(s): RT. HAND SURGERY S. COLONOSCOPY 2010. Past Anesthesia/Blood Transfusion Reactions: No Reported Reaction Smoking Status: Former smoker - Past Family History Father Family Medical History: Diabetes Mellitus, Pulmonary Embolus Mother Family Medical History: COPD Medications and Allergies Home Medications Medication Instructions Recorded Confirmed Type oxyCODONE HCL [oxyCODONE HCL (IR)] 30 mg PO QID 08/09/19 11/28/20 History Aspirin 81 mg PO DAILY #30 chewable 12/27/19 11/28/20 Rx Albuterol Inhaler [Ventolin Hfa 1 - 2 puff INHALATION RT-Q6H PRN 07/24/20 11/28/20 History Inhaler] Atorvastatin [Lipitor] 20 mg PO HS 07/24/20 11/28/20 History EPINEPHrine (Auto Inject) [Epipen] 0.3 mg IM ONCE PRN 07/24/20 11/28/20 History Naloxone (Mdv) [Narcan (Mdv)] 0.4 mg IM ONCE PRN 07/24/20 11/28/20 History Allergies Allergy/AdvReac Type Severity Reaction Status Date / Time Penicillins Allergy Rash/Hives Verified 11/28/20 10:07 Surgical - Exam - General no distress, no pain - Respiratory normal expansion, normal respiratory effort - Abdomen Abdomen: soft, non tender Assessment and Plan Assessment: 60-year-old male with history of BPH -Or for cystoscopy and urolift
[~2020-12-03 07:50] MED LIST: DEXAMETHASONE SOD PHOSPHATE 4 MG/ML 1 ML VIAL IV ONE; HYDROmorphone 0.5 MG/0.5 ML SYRINGE IVP PRN; LACTATED RINGERS 1,000 ML IV SCH; LIDOCAINE 1% (10MG/ML) FOR IV START INTRADERMA PRN; ONDANSETRON 4 MG/2 ML VIAL IVP ONE; SCOPOLAMINE 1.5MG/72HR PATCH TRANSDERM ONE
[2020-12-03] MEDS ORDERED: LACTATED RINGERS 1,000 ML IV ONE (08:15)
[2020-12-03] MEDS ORDERED: MIDAZOLAM 2 MG/2 ML VIAL IV ONE (08:20)
[2020-12-03] MEDS ORDERED: LIDOCAINE 1% INJ 10MG/ML (20 ML MDV) ONE (09:09)
[2020-12-03] MEDS ORDERED: SUCCINYLCHOLINE CHLORIDE 100 MG/5 ML SYR IV ONE (09:09)
[2020-12-03] MEDS ORDERED: fentaNYL (PF) 50 MCG/ML 2 ML AMP ONE (09:09)
[2020-12-03] MEDS ORDERED: PROPOFOL 10 MG/ML 20 ML VIAL IV ONE (09:09)
--- NOTE | 2020-12-03 09:53 | P.OP ---
Date of Procedure: 12/03/20 Preoperative Diagnosis: BPH Postoperative Diagnosis: same Procedure(s) Performed: Cystoscopy, Urolift Implants: 6 Urolift implants Anesthesia: SAÚLA Surgeon: Vu Lowery Estimated Blood Loss (ml): 5 Pathology: none sent Condition: stable Disposition: PACU Indications for Procedure: This is 60-year-old male with history of BPH. He's been having bothersome urinary symptoms despite medical therapy, he is also been having side effects secondary to Flomax. Discussed surgical options with him. He underwent a cystoscopy which demonstrated bilateral obstructing lateral lobes. Discussed with him the option of a TURP versus a urolift. Discussed the benefit and risk of both approach. He agreed to proceed with the urolift. Discussed with him the risk which includes but not limited to bleeding, infection. Also discussed the potential that he may continue to have urinary symptoms even with surgical intervention. He understood all the risk and agreed proceed to proceed Operative Findings: Bilateral obstructive lateral lobes Description of Procedure: Patient was brought to the operating room, general anesthesia was induced. He was prepped and draped in sterile fashion placed in dorsal lithotomy position. Cystoscopy fitted with a 21-Tai[place]ese sheath was inserted per urethra, cystoscopy was performed showed no abnormality within the bladder. Uretheroscopy was performed showed bilateral obstructing lateral lobes. A total of 6 uolift were implanted, ensuring that each implant is distal to the bladder neck, and proximal to the veru. There was no evidence of perforation into the bladder. There was no evidence of bleeding. At the end of the case there was an excellent channel through the prostatic urethra. The urine was light pink at the case. The bladder was emptied and the case, the patient tolerated the procedure well was taken to PACU in stable condition
[2020-12-03 10:03] VITALS: RESP 16; TEMP 97.3
[2020-12-03 10:50] VITALS: BP 129/85; PULSE 77
== END 2020-12-03 11:05 | disposition home or self-care (01) ==
LOC: OR 07:50
PROVIDERS: ATTEND Urology
DX: N40.0 Benign prostatic hyperplasia without lower urinary tract symptoms (principal); E78.5 Hyperlipidemia, unspecified; J44.9 Chronic obstructive pulmonary disease, unspecified; G89.29 Other chronic pain; Z86.73 Personal history of transient ischemic attack (TIA), and cerebral infarction without residual deficits; G47.30 Sleep apnea, unspecified; M79.7 Fibromyalgia; M54.2 Cervicalgia; M54.5 Low back pain; Z87.891 Personal history of nicotine dependence; Z79.82 Long term (current) use of aspirin; Z79.899 Other long term (current) drug therapy; Z98.890 Other specified postprocedural states; Z91.030 Bee allergy status; Z82.49 Family history of ischemic heart disease and other diseases of the circulatory system; Z83.3 Family history of diabetes mellitus; Z82.5 Family history of asthma and other chronic lower respiratory diseases; Z88.0 Allergy status to penicillin
CPT/HCPCS: 52441; 52442; L8699; J2250; J1100; J0690; J2405; J2001; J3010; J0330; J2704

== ENCOUNTER → 2022-06-02 | Outpatient (CLI) | payer OTHER ==
--- NOTE | 2022-06-02 08:07 | MR ---
EXAMINATION TYPE: MR cervical spine wo con DATE OF EXAM: 06/02/2022 COMPARISON: 12/26/2019 HISTORY: 62-year-old male Headaches, Left arm pain and rt finger pain, insomnia TECHNIQUE: Multiplanar, multisequence images of the cervical spine were acquired without contrast. FINDINGS: No craniocervical junction abnormality, prevertebral soft tissue swelling, or predental space widenin g. There is [id number] multilevel degenerative disc disease with desiccated disks and disc osteoph yte complex formation. Mixed Modic type I and type II endplate changes present particularly at C5-C6. Mild disc space narrowing at various levels. Otherwise, no suspicious bone marrow replacement. Multilevel hypertrophic facet and uncovertebral joint arthropathy with degenerative grade 1 retrolist hesis at C3-C4 and C5-C6 redemonstrated. At C2-C3, mild facet and uncovertebral joint arthropathy without significant canal or foraminal steno sis. At C3-C4, hypertrophic facet and uncovertebral joint arthropathy with a right paracentral disc osteop hyte complex. Changes contribute to moderate right and mild left neuroforaminal stenosis. There is al so mild overall narrowing of the central spinal canal. The right paracentral disc osteophyte complex focally indents the right ventral cord. Changes appear slightly increased from prior exam. At C4-C5, hypertrophic facet and uncovertebral joint arthropathy with mild bilateral neuroforaminal n arrowing. No spinal canal stenosis. At C5-C6, broad-based disc osteophyte complex with hypertrophic facet and uncovertebral joint arthrop athy. Changes result in moderate to severe right and moderate left neuroforaminal stenosis. Along wit h mild ligamentum flavum thickening, changes result in mild to moderate narrowing of the spinal canal with abutment and slight flattening of both the dorsal and ventral cord. No abnormal cord signal fili nge is seen. At C6-C7, hypertrophic facet and uncovertebral joint arthropathy especially towards the left resultin g in a severe left neuroforaminal stenosis. Mild neural foraminal narrowing on the right. No signific ant spinal canal stenosis. At C7-T1, mild facet and uncovertebral joint arthropathy on the left mildly narrowing the neuroforame n. Normal cervical cord signal intensity. IMPRESSION: 1. Bqnr-nh-hmvknkvs multilevel degenerative disc disease, more moderate at C5-C6 where there is mixed Modic type I and type II endplate change. Small disc osteophyte complexes are present at multiple le vels. 2. Additional multilevel hypertrophic facet and uncovertebral joint arthropathy with degenerative gra de 1 retrolisthesis at C3-C4 and C5-C6. Changes contribute to variable neuroforaminal stenoses as out lined above, moderate to severe on the right at C5-C6. Severe on the left at C6-C7. Level by level ch anges as outlined above. 3. In addition, there is a large right paracentral disc osteophyte complex at C3-C4 which focally ind ents the right ventral cervical spinal cord and contributes to a mild overall spinal canal stenosis. Slightly larger compared to 2020. No myelopathic cord signal change. 4. Mild to moderate spinal canal stenosis at C5-C6 with abutment and slight flattening of both the do rsal and ventral cord at this level.
== END | disposition home or self-care (01) ==
LOC: RADMRIMAIN 05:57
PROVIDERS: ATTEND Psychiatry & Neurology Neurology
DX: G47.00 Insomnia, unspecified (principal)
CPT/HCPCS: 72141

== ENCOUNTER → 2022-07-16 | Outpatient (CLI) | payer OTHER ==
[2022-07-16 12:54] VITALS: BP 142/83; PULSE 84; RESP 16; TEMP 98.2
--- NOTE | 2022-07-16 15:04 | P.PAINPG ---
Objective - Vital Signs Vital signs: Intake & Output 07/15/22 07/16/22 07/16/22 18:59 06:59 18:59 Weight 86.183 kg PQRS Measure Charge Sheet Comment: HISTORY OF PRESENT ILLNESS: 62 yr old male as a referral from Dr. Cardozo presents today w severe and chronic neck pain secondary to spondylosis, DDD and facet arthropathy without myelopathy for evaluation. Pt states his pain level is currently at 7/10, constant, shooting stabbing numbness in BL hands. provoked w activity. Pain is alleviated w PT in 2019, medications (ASA), repositioning and rest. No chiropractic treatments as he was told it is contraindicated for him. He would like to try integrated massage therapy. PMH: COPD, CVA, Fibromyalgia, Prostate Disorder, Sleep Apnea/CPAP/BIPAP PSH: R Hand Surgery (), Colonoscopy (2010), Appendectomy, BL CTR, BL intraarticular in SH: Former tobacco user, No ETOH abuse, No illicit drug use. FH: Fa- NIDDM, PE. MO- COPD All: NKDA Meds: See list REVIEW OF ORGAN SYSTEMS: CONSTITUTIONAL: No fevers or chills. No recent weight loss. NEUROLOGICAL: + numbness and tingling along the distal extremities. No seizure disorders or headaches. MUSCULOSKELETAL: + pain PSYCHIATRIC: Denies current depression or suicidal thoughts. Physical Examinations : Constitutional : Cooperative , not in acute distress . Neurologic : Cranial nerve II to XII intact. No focal neurological deficits. Psychiatric : alert & oriented x 3. Matching mood & appropriate affect. Judgment & insight intact. Musculoskeletal : Cervical Spine Motor strength in the deltoid and biceps: Normal right side. Normal Left side Motor strength biceps and the wrist extensors: Normal right side . Normal left side Motor strength in the triceps muscle: Normal right side. Normal left side Deep tendon reflexes: Normal at the biceps. Normal at Brachioradialis. Normal at triceps Vertebral body tenderness to deep palpation over C6, C7 Cervical facet loading test: positive bilaterally Spurling test: positive bilaterally Neck distraction test: positive bilaterally Rhiannon sign: positive bilaterally Lumbar spine Motor strength lower extremities ,thigh and legs 5/5 Right side , 5/5 Left side Deep tendon reflexes : Normal Knee Jerk. Normal Ankle Jerk Vertebral body tenderness over Lumbar facet Loading Test: positive Right / positive Left Range of motion of the lumbar spine Flexion 30 degrees, extension 10 degrees Straight Leg Raise test: Left/ Right positive at degree Aubree test: positive right / positive left. Severe tenderness over the Sacroiliac joint on the Right / Left sides Gaenslen test: positive bilaterally Seated flexion test: positive bilaterally. Sacral spine : Severe tenderness over the Sacroiliac joint: right side / left side Range of motion: Flexion of the lumbar spine <60 degrees Range of motion: Extension of the lumbar spine <20 degrees Gaenslen's Test positive Rickie's Test positive Aubree test: positive right side / left side Thigh Thrust Test Sacral Thrust Test Imaging: MRI of the cervical spine from 06/02/22 reviewed Assessment/ Plan : Cervical DDD, Cervical Spondylosis Recommendation of RAMAN C6-C7. May need a series of injections, up to 3 within a 6 mo period, for optimal pain relief. Risks, benefits of procedure discussed and patient verbalized understanding. Admits to aspirin or anti- coagulant use and denies a medical history of diabetes. Protocol for discontinuation/ continuation of medications benji procedure discussed. All questions answered. I have spent greater than 30 minutes on patient care today. Dr Godinez was available by phone for the evaluation of this patient. The time was used to review the medical records including relevant urine studies and Prescription history (MAPs), review of the available imaging, evaluation and examination of the patient, coordination of care with the medical staff and if applicable referring physicians, as well as creation of the medical record PQRS Narrative: Smoking Status Current every day smoker Narcotic Agreement Date Signed 04/29/13 Home Medications: Ambulatory Orders Aspirin 81 mg PO DAILY #30 chewable 12/27/19 EPINEPHrine (Auto Inject) [Epipen] 0.3 mg IM ONCE PRN 07/24/20 Naloxone (Mdv) [Narcan (Mdv)] 0.4 mg IM ONCE PRN 07/24/20 Ibuprofen 600 mg PO Q8H PRN #20 tab 12/03/20 Controlled Substance Measures - Controlled Substance Measures Is patient prescribed a controlled substance at discharge?: No
== END | disposition home or self-care (01) ==
LOC: PNWHC3 12:24
PROVIDERS: ATTEND Specialist
DX: M47.892 Other spondylosis, cervical region (principal); M50.323 Other cervical disc degeneration at C6-C7 level; M46.52 Other infective spondylopathies, cervical region
CPT/HCPCS: 99211

== ENCOUNTER 2022-09-11 12:49 | Day surgery (SDC) | payer OTHER ==
[2022-09-11 13:20] VITALS: RESP 16; TEMP 97
[2022-09-11] MEDS ORDERED: LACTATED RINGERS 1,000 ML IV SCH (13:20)
[2022-09-11] MEDS ORDERED: LACTATED RINGERS 1,000 ML IV ONE (13:20)
[2022-09-11] MEDS ORDERED: MIDAZOLAM 2 MG/2 ML VIAL ONE (13:31)
[2022-09-11] MEDS ORDERED: DEXAMETHASONE SOD PHOSPHATE 10 MG/ML 1 ML VIAL ONE (13:31)
[2022-09-11] MEDS ORDERED: fentaNYL (PF) 50 MCG/ML 2 ML AMP ONE (13:31)
[2022-09-11] MEDS ORDERED: IOPAMIDOL M200 10 ML VIAL ONE (13:31)
--- NOTE | 2022-09-11 13:40 | P.PCN ---
Date of Procedure: 09/11/22 Procedure(s) Performed: . PROCEDURE 1. Cervical epidural steroid injection under fluoroscopic guidance, C6-7 (fluoroscopy images available in the radiology department ) 2. Cervical epidurogram. PREOPERATIVE DIAGNOSIS: 1- Cervical Degenerative Disc Diseases 2- Cervical radiculopathy., 3-cervical spondylosis with cervical Facet arthropathy without myelopathy.4-cervical spinal stenosis POSTOPERATIVE DIAGNOSIS: : 1- Cervical Degenerative Disc Diseases , 2- Cervical radiculopathy. 3-,cervical spondylosis with cervical Facet arthropathy without myelopathy. 4-cervical spinal stenosis ANESTHESIA: moderate sedation, with Versed 2 mg and Fentanyl 100 mcg. Sedation start time :13:33 Sedation end time : 13:38 EBL 0 PROCEDURE INDICATION: The patient with neck pain and radiculitis unresponsive to conservative treatment consents for procedure. PROCEDURE DESCRIPTION / TECHNIQUE: The patient was seen and identified in the preoperative area. Risks, benefits, complications, including but not limited to infections ,bleeding , allergic reactions to the medications ,and not complete pain releife, and alternatives were discussed with the patient, the patient agreed to proceed with the procedure and signed the consent. Patient was taken to the OR and time out was completed. The patient was placed in the prone position on the procedure table. A pillow was placed under the patients chest to increase the cervical interlaminar space. The cervical area was prepped and draped in the usual sterile fashion. Vital signs were closely monitored during the procedure. Conscious sedation was used during the procedure to decrease patients anxiety. Using anterior-posterior fluoroscopy, the C6-7 interlaminar space was identified and the skin over this site was marked and then infiltrated with 1% lidocaine subcutaneously. Subsequently, a 20-gauge 3-1/2-inch Tuohy epidural needle was inserted and advanced toward the epidural space by means of the ``hanging-drop technique and guided by AP and lateral fluoroscopy. The correct needle position in the epidural space was verified with the injection of 2 mL of the water soluble contrast dye Isovue-200 and observing an excellent epidurogram with the epidural spread of the dye, after negative aspiration for blood and CSF and in the absence of paresthesias. then, mixture containing 20 mg Dexamethasone and 2 ml of preservative-free normal saline injected and a washout of epidurogram was seen. Needle was withdrawn intact, skin was cleansed, and bandages were applied. Complications= none. Disposition= patient was placed in supine position and transferred to the recovery room area in stable condition and there was no evidence of upper or lower extremity motor or sensory deficit after the procedure patient was discharged from recovery room after discharge criteria met and home discharge instructions was given by the staff and patient will follow with the pain clinic in 2-4 weeks
[2022-09-11] MEDS ORDERED: IV FLUID CONTINUATION 1,000 ML IV ONE (13:43)
--- NOTE | 2022-09-11 13:53 | FL ---
Fluoroscopy HISTORY: Pain 1 seconds fluoroscopy time supplied to the referring clinician. 1 intraoperative C-arm images docume nt the procedure. See dictated report from anesthesia.
[2022-09-11 13:58] VITALS: BP 153/68; PULSE 78
== END 2022-09-11 14:12 | disposition home or self-care (01) ==
LOC: ORPAIN 12:49
PROVIDERS: ATTEND Specialist
DX: M50.123 Cervical disc disorder at C6-C7 level with radiculopathy (principal); M47.22 Other spondylosis with radiculopathy, cervical region; M48.02 Spinal stenosis, cervical region
CPT/HCPCS: 62321; J2250; J1100; J3010; Q9966

== ENCOUNTER → 2022-11-19 | Outpatient (CLI) | payer OTHER ==
--- NOTE | 2022-11-19 18:04 | CT ---
EXAMINATION TYPE: CT brain wo con DATE OF EXAM: 11/19/2022 COMPARISON: 12/26/2019 HISTORY: 62-year-old male S09.90XA UNSPECIFIED INJURY OF HEAD, Head injury x1mo ago. Now pt C/O head numbness, tingling and headaches. TECHNIQUE: Examination was done in axial plane without intravenous contrast. Coronal and sagittal r econstructions performed. CT DLP: 1161.5 mGycm Automated exposure control for dose reduction was used. FINDINGS: There is no evidence of acute intracranial hemorrhage, acute ischemic changes, mass, mass-effect, or extra-axial fluid collection. There is no effacement of cerebral sulci or basal subarachnoid cister ns. There is no hydrocephalus. There is no midline shift. Mar-white matter distinction is preserv ed. Paranasal sinuses and mastoid air cells well pneumatized. Orbits and globes are intact. IMPRESSION: No acute intracranial abnormality seen.
== END | disposition home or self-care (01) ==
LOC: RADCTMAIN 14:22
PROVIDERS: ATTEND Family Medicine
DX: S09.90XA Unspecified injury of head, initial encounter (principal)
CPT/HCPCS: 70450

== ENCOUNTER → 2022-11-21 | Outpatient (CLI) | payer OTHER ==
--- NOTE | 2022-11-21 15:01 | CTL ---
EXAMINATION TYPE: CT Low Dose Lung DATE OF EXAM ORDERED: 11/21/2022 HISTORY: Current smoker. Lung cancer screening CT DLP: 118.[address] CTDI: 3.0 mGy Automated exposure control for dose reduction was used. SCREENING VISIT: Initial COMPARISON: None TECHNIQUE: Low dose computed tomography scan was performed through the chest at 1 mm thick sections a nd reconstructed images in the coronal plane at [address] DIAGNOSTIC QUALITY: Satisfactory FINDINGS: LUNG NODULES: None. LUNGS: COPD: Severity: None Fibrosis: Severity: None Lymph nodes: There is a 1.3 cm pretracheal lymph node. No additional enlarged lymphadenopathy is evid ent. Other findings: The ascending thoracic aorta at the main pulmonary artery is 3.2 cm. Main pulmonary a rtery at the bifurcation is 2.5 cm. RIGHT PLEURAL SPACE: Effusion: None Calcification: None Thickening: None Pneumothorax: None LEFT PLEURAL SPACE: Effusion: None Calcification: None Thickening: None Pneumothorax: None HEART: Heart Size: Normal Coronary calcification: Normal Pericardial effusion: None OTHER FINDINGS: Upper abdomen: There is diffuse fatty infiltration through the pancreas. Bony thorax: Normal Supraclavicular region: Normal IMPRESSION: 1. No suspicious abnormality to suggest primary neoplasm. 2. Solitary enlarged lymph node pretracheal space. Follow-up is recommended. FOLLOW UP CT CHEST RECOMMENDATION: Yes, short-term follow-up CT chest CT LUNG RAD: Lung-Rad 3 Probably Benign
== END | disposition home or self-care (01) ==
LOC: RADCTMAIN 08:19
PROVIDERS: ATTEND Family Medicine
DX: Z12.2 Encounter for screening for malignant neoplasm of respiratory organs (principal); R59.0 Localized enlarged lymph nodes; Z87.891 Personal history of nicotine dependence
CPT/HCPCS: 71271

== ENCOUNTER 2022-11-25 10:56 | Day surgery (SDC) | payer OTHER ==
[~2022-11-25 10:56] MED LIST changes: -DEXAMETHASONE SOD PHOSPHATE 4 MG/ML 1 ML VIAL IV ONE; -HYDROmorphone 0.5 MG/0.5 ML SYRINGE IVP PRN; -LIDOCAINE 1% (10MG/ML) FOR IV START INTRADERMA PRN; -ONDANSETRON 4 MG/2 ML VIAL IVP ONE; -SCOPOLAMINE 1.5MG/72HR PATCH TRANSDERM ONE
[2022-11-25 11:29] VITALS: BP 142/84; PULSE 79; RESP 18; TEMP 96.7
--- NOTE | 2022-11-25 12:07 | P.PN ---
Progress Note - Text Progress Note Date: 11/25/22 Eduardo presented for a cervical epidural steroid injection today. After discussion with the patient, he reported that he really has not had any neck pain over the last couple weeks. He had 2 injections performed in the month of August at the C6-C7 level and reports they've helped with this pain. He is concerned about receiving too much steroids. We discussed the risks and benefits of using steroid injections as well as the risk of taking more than 3-4 injections in a 12 month period. Since he did not have any pain today we both decided that it best to hold off on doing the injection today. He'll follow-up with our clinic as needed and we can reschedule at that time.
== END 2022-11-25 11:44 | disposition home or self-care (01) ==
LOC: ORPAIN 10:56
PROVIDERS: ATTEND Hospitalist
DX: Z53.9 Procedure and treatment not carried out, unspecified reason (principal); M54.2 Cervicalgia; M54.12 Radiculopathy, cervical region

== ENCOUNTER → 2023-02-10 | Outpatient (CLI) | payer OTHER ==
--- NOTE | 2023-02-10 11:40 | CA ---
Exercise Nuclear Stress Test Report Name: Eduardo Anderson Exam Date: 02/10/2023 09:45 Exam Location: [facility] Stress Ht (in): 68 Wt (lb): 185 BSA: 1.98 Ordering Phys: Mariana Roberson MD Referring Phys: MARIANA ROBERSON,, Technologist: Dagoberto White Age: 62 Gender: M : 1960 Procedure CPT: Indications: I49.3 ventricular premature depolarization ICD-10 Codes: Patient History: Medications: Meds past 24 hrs: Pretest Chest Pain: STRESS TEST Protocol Exercise Duration (min:sec): 11:[address] Depressions (mm): Angina Score: Joe Score: Resting HR (bpm): 74 Peak HR (bpm): 148 Resting BP (mmHg): 95 / 70 Peak BP (mmHg): 147 / 105 MPHR: 158 Target HR: 134 % MPHR: 94 METS: 13.0 Total Dose: Peak Dose: Atropine: Double Product: 29857 BP Response: Stress Termination: Reached target heart rate Stress Symptoms: NO SYMPTOMS Stress Summary: ECG ANALYSIS Resting ECG: Stress ECG: CONCLUSIONS Patient underwent exercise stress Cardiolite with a Heriebrto protocol treadmill stress test. Patient exercised into Stage 3 for a total of 11 minutes and 11 seconds reaching a total of 13 METS. Patient's maximum heart rate was 148 which represented 93 % age-predicted maximum heart rate. Stress EKG findings: At baseline patient's EKG showed normal sinus rhythm, normal axis, occasional PVCs, no significant ST or T wave abnormalities. At peak exercise, EKG showed no significant change from baseline. Conclusions: 1. Normal EKG response to exercise without evidence of inducible ischemia. 2. Good exercise capacity. 3. Nuclear portion to be reported separately. Dr. Waldo Atwood DO (Electronically Signed) Final Date: 10 February 2023 11:39
--- NOTE | 2023-02-10 11:52 | NM ---
EXAMINATION TYPE: NM stress cardiolite complete DATE OF EXAM: 02/10/2023 COMPARISON: NONE HISTORY: Chest pain TECHNIQUE: After the intravenous administration of 10.2 mCi Tc 99m Sestamibi - Rest images obtained 45 minutes post injection. The patient exercised using a DIXON protocol and 1 minute prior to peak exercise was injected with 25.2 mCi Tc 99m Sestamibi - Stress images obtained 15 minutes post injecti on. FINDINGS: Targeted heart rate was achieved during performance of the study. Review of stress and rest SPECT dashawn ges demonstrates no distinct perfusion abnormality. Gated analysis shows normal wall motion with an estimated left ventricular ejection fraction of 58 %. IMPRESSION: No scintigraphic evidence for reversible ischemia
== END | disposition home or self-care (01) ==
LOC: RADNMMAIN 08:05
PROVIDERS: ATTEND Internal Medicine Clinical Cardiac Electrophysiology
DX: I49.3 Ventricular premature depolarization (principal)
CPT/HCPCS: 93017; 78452; A9500

== ENCOUNTER → 2023-04-14 | Outpatient (CLI) | payer OTHER ==
--- NOTE | 2023-04-14 09:19 | CT ---
EXAMINATION TYPE: CT chest w con DATE OF EXAM: 04/14/2023 COMPARISON: 11/21/2022 HISTORY: Lung nodule CT DLP: 322.0 mGycm Automated exposure control for dose reduction was used. CONTRAST: CT scan of the chest is performed with IV Contrast, patient injected with 100 mL of Isovue 300. FINDINGS: LUNGS: The lungs are grossly clear, there is no concerning parenchymal mass or nodule identified. T here is no pleural effusion or pneumothorax seen. The tracheobronchial tree is patent. MEDIASTINUM: There is a stable right paratracheal lymph node measuring 1.3 cm in short axis. No addit ional lymph nodes greater than 1 cm this time. No pericardial effusion is seen. Thoracic aorta is of normal caliber. The heart is not enlarged. UPPER ABDOMEN: No significant abnormality appreciated. OTHER: No additional significant abnormality is seen. IMPRESSION: 1. No evidence of pulmonary nodularity. 2. Stable mildly enlarged right paratracheal lymph node.
== END | disposition home or self-care (01) ==
LOC: RADCTMAIN 08:39
PROVIDERS: ATTEND Family Medicine
DX: R91.1 Solitary pulmonary nodule (principal); R59.0 Localized enlarged lymph nodes
CPT/HCPCS: 71260; Q9967

== ENCOUNTER 2024-01-02 16:20 | Observation (INO) | payer OTHER ==
--- NOTE | 2024-01-02 16:52 | ED ---
General Adult HPI - General Chief complaint: Syncope Stated complaint: Syncope Time Seen by Provider: 01/02/24 16:20 Source: patient, EMS Mode of arrival: EMS Limitations: no limitations - History of Present Illness Initial comments: 63-year-old male who states he quit smoking about 2 weeks ago who states he found a menthol cigarette in his garage prior to arrival he states he was smoking that felt lightheaded and dizzy and did briefly pass out. Per paramedics his reported some shaking episode during this time. Patient denies any pain he denies any palpitations fevers chills nausea vomiting sweats no prior episodes of this. No recent illnesses. He does state he has a history of PVCs. - Related Data Home Medications Medication Instructions Recorded Confirmed Albuterol Sulfate [Ventolin HFA] 2 puff INHALATION RT-Q6H PRN 12/31/22 01/02/24 HYDROcodone/APAP 7.5-325MG [[place] 1 tab PO TID PRN 12/31/22 01/02/24 7.5-325] cycloSPORINE 0.05% OPHTH SOLN 1 applicator BOTH EYES BID 12/31/22 01/02/24 [Restasis] Atorvastatin [Lipitor] 40 mg PO HS 01/02/24 01/02/24 Cholecalciferol [Vitamin D3 (25 50 mcg PO DAILY 01/02/24 01/02/24 Mcg = 1000 Iu)] LORazepam [Ativan] 1 mg PO DAILY PRN 01/02/24 01/02/24 [place]-3/Dha/Epa/Fish Oil [Fish Oil 2 cap PO DAILY 01/02/24 01/02/24 1,000 mg Softgel] Vit C/E/Zn/Coppr/Lutein/Zeaxan 2 tab PO DAILY 01/02/24 01/02/24 [Preservision Areds 2 Chew Tab] Allergies Allergy/AdvReac Type Severity Reaction Status Date / Time No Known Allergies Allergy Verified 01/02/24 18:15 Review of Systems ROS Statement: Those systems with pertinent positive or pertinent negative responses have been documented in the HPI. ROS Other: All systems not noted in ROS Statement are negative. Past Medical History Past Medical History: Sleep Apnea/CPAP/BIPAP Additional Past Medical History / Comment(s): DOES NOT USE CPAP. KARTHIK CARPAL TUNNEL PROBS. CHRONIC LOW BACK/NECK PAIN. History of Any Multi-Drug Resistant Organisms: None Reported Past Surgical History: Appendectomy, Orthopedic Surgery Additional Past Surgical History / Comment(s): RT. HAND SURGERY 1979'S. COLONOSCOPY 2010. Past Anesthesia/Blood Transfusion Reactions: No Reported Reaction Past Psychological History: Anxiety, Depression Smoking Status: Former smoker - Past Family History Father Family Medical History: Diabetes Mellitus, Pulmonary Embolus Mother Family Medical History: COPD General Exam - General Exam Comments Initial Comments: This is a well-developed well-nourished awake alert oriented x 4 male Limitations: no limitations General appearance: alert, in no apparent distress Head exam: Present: atraumatic, normocephalic, normal inspection Eye exam: Present: normal appearance, PERRL, EOMI. Absent: scleral icterus, conjunctival injection, periorbital swelling ENT exam: Present: normal exam, mucous membranes moist Neck exam: Present: normal inspection, full ROM, other (No stridor JVD or bruits). Absent: tenderness, meningismus, lymphadenopathy Respiratory exam: Present: normal lung sounds bilaterally. Absent: respiratory distress, wheezes, rales, rhonchi, stridor Cardiovascular Exam: Present: regular rate, normal rhythm, normal heart sounds. Absent: systolic murmur, diastolic murmur, rubs, gallop, clicks GI/Abdominal exam: Present: soft, normal bowel sounds. Absent: distended, tenderness, guarding, rebound, rigid, bruit, pulsatile mass Extremities exam: Present: normal inspection, full ROM, normal capillary refill. Absent: tenderness, pedal edema, joint swelling, calf tenderness Back exam: Present: normal inspection Neurological exam: Present: alert, oriented X3, CN II-XII intact Psychiatric exam: Present: normal affect, normal mood Skin exam: Present: warm, dry, intact, normal color. Absent: rash Course Vital Signs 01/02/24 01/02/24 01/02/24 16:23 19:25 21:44 Pulse Rate 70 94 77 Respiratory 18 16 16 Rate Blood Pressure 138/93 120/83 132/76 O2 Sat by Pulse 97 97 97 Oximetry - Reevaluation(s) Reevaluation #1: 01/02/24 18:40 The patient's has given me more information he apparently did have a syncopal episode while walking at home no injury reported but he did have tonic- clonic type activity for 5 to 10 seconds afterwards. He did immediately wake up however it was cognitively normal. Additional information the patient has been having intermittent episodes of chest pain recently with diaphoresis. Medical Decision Making - Medical Decision Making Patient has had no further episodes since arrival. I did discuss the findings with the patient and his patient also has been having difficulty sleeping for quite some time he has been smoking. He will be admitted with consult to cardiology also nicotine patch. CT of the brain will be done also. I had discussed the case with Dr. Dior. Was pt. sent in by a medical professional or institution (, PA, QUALITY RN, urgent care, hospital, or snf...) When possible be specific @ -No Did you speak to anyone other than the patient for history (EMS, parent, family, police, friend...)? What history was obtained from this source @ -Paramedics and later the patient's Did you review nursing and triage notes (agree or disagree)? Why? @ -I reviewed and agree with nursing and triage notes Were old charts reviewed (outside hosp., previous admission, EMS record, old EKG, old radiological studies, urgent care reports/EKG's, snf records)? Report findings @ -No old charts were reviewed Differential Diagnosis (chest pain, altered mental status, abdominal pain women, abdominal pain men, vaginal bleeding, weakness, fever, dyspnea, syncope, headache, dizziness, GI bleed, back pain, seizure, CVA, palpatations, mental health, musculoskeletal)? @ -Syncope EKG interpreted by me (3pts min.). @ -As above EKG interpreted by me normal sinus rhythm at 71 parable 160 QRS duration 110 QT/QTc 390/414 incomplete right bundle branch block nonspecific inferior configuration X-rays interpreted by me (1pt min.). @ -Chest x-ray interpreted by me no acute process CT interpreted by me (1pt min.). @ -CT angio of the chest interpreted by me no evidence of PE U/S interpreted by me (1pt. min.). @ -None done What testing was considered but not performed or refused? (CT, X-rays, U/S, la bs)? Why? @ -None What meds were considered but not given or refused? Why? @ -None Did you discuss the management of the patient with other professionals (professionals i.e. , PA, QUALITY RN, lab, RT, psych nurse, social work nurse, production team leader, teacher, chief accounting officer, correctional casework specialist)? Give summary @ -No Was smoking cessation discussed for >3mins.? @ -Yes for greater than 3 minutes Was critical care preformed (if so, how long)? @ -31 minutes Were there social determinants of health that impacted care today? How? (Homelessness, low income, unemployed, alcoholism, drug addiction, transportation, low edu. Level, literacy, decrease access to med. care, shelter, rehab)? @ -No Was there de-escalation of care discussed even if they declined (Discuss DNR or withdrawal of care, Hospice)? DNR status @ -No What co-morbidities impacted this encounter? (DM, HTN, Smoking, COPD, CAD, Cancer, CVA, ARF, Chemo, Hep., AIDS, mental health diagnosis, sleep apnea, morbid obesity)? @ -Smoker, insomnia Was patient admitted / discharged? Hospital course, mention meds given and route, prescriptions, significant lab abnormalities, going to OR and other pertinent info. @ -Hospital course patient was admitted for inpatient evaluation and treatment cardiology consultation Undiagnosed new problem with uncertain prognosis? @ -Syncope Drug Therapy requiring intensive monitoring for toxicity (Heparin, Nitro, Insulin, Cardizem)? @ -No Were any procedures done? @ -No Diagnosis/symptom? @ -Acute syncope Acute, or Chronic, or Acute on Chronic? @ -Acute Uncomplicated (without systemic symptoms) or Complicated (systemic symptoms)? @ -Plicated Side effects of treatment? @ -No Exacerbation, Progression, or Severe Exacerbation? @ -No Poses a threat to life or bodily function? How? (Chest pain, [place], [place], pneumonia, PE, COPD, DKA, ARF, appy, cholecystitis, CVA, Diverticulitis, Homicidal, Suicidal, threat to staff... and all critical care pts) @ -Potential - Lab Data Result diagrams: 01/02/24 17:36 01/02/24 17:36 Lab Results 01/02/24 01/02/24 01/02/24 Range/Units 17:36 17:36 17:36 WBC 9.3 (3.8-10.6) k/uL RBC 5.04 (4.30-5.90) m/uL Hgb 16.5 (13.0-17.5) gm/dL Hct 48.9 (39.0-53.0) % MCV 97.1 (80.0-100.0) fL MCH 32.7 (25.0-35.0) pg MCHC 33.7 (31.0-37.0) g/dL RDW 12.6 (11.5-15.5) % Plt Count 260 (150-450) k/uL MPV 7.9 Neutrophils % 72 % Lymphocytes % 20 % Monocytes % 5 % Eosinophils % 1 % Basophils % 0 % Neutrophils # 6.7 (1.3-7.7) k/uL Lymphocytes # 1.8 (1.0-4.8) k/uL Monocytes # 0.5 (0-1.0) k/uL Eosinophils # 0.1 (0-0.7) k/uL Basophils # 0.0 (0-0.2) k/uL PT 10.9 (10.0-12.5) sec INR 1.0 (<1.2) APTT 24.1 (22.0-30.0) sec D-Dimer 1.30 H (<0.60) mg/L FEU Sodium 139 (137-145) mmol/L Potassium 4.7 (3.5-5.1) mmol/L Chloride 106 (98-107) mmol/L Carbon Dioxide 28 (22-30) mmol/L Anion Gap 5 mmol/L BUN 16 (9-20) mg/dL Creatinine 0.68 (0.66-1.25) mg/dL Est GFR (CKD-EPI)AfAm >90 (>60 ml/min/1.73 sqM) Est GFR (CKD-EPI)NonAf >90 (>60 ml/min/1.73 sqM) Glucose 111 H (74-99) mg/dL Calcium 9.4 (8.4-10.2) mg/dL Magnesium 2.2 (1.6-2.3) mg/dL Total Bilirubin 0.6 (0.2-1.3) mg/dL AST 30 (17-59) U/L ALT 58 H (4-49) U/L Alkaline Phosphatase 75 (38-126) U/L Troponin I (0.000-0.034) ng/mL Total Protein 7.0 (6.3-8.2) g/dL Albumin 4.5 (3.5-5.0) g/dL 01/02/24 Range/Units 17:36 WBC (3.8-10.6) k/uL RBC (4.30-5.90) m/uL Hgb (13.0-17.5) gm/dL Hct (39.0-53.0) % MCV (80.0-100.0) fL MCH (25.0-35.0) pg MCHC (31.0-37.0) g/dL RDW (11.5-15.5) % Plt Count (150-450) k/uL MPV Neutrophils % % Lymphocytes % % Monocytes % % Eosinophils % % Basophils % % Neutrophils # (1.3-7.7) k/uL Lymphocytes # (1.0-4.8) k/uL Monocytes # (0-1.0) k/uL Eosinophils # (0-0.7) k/uL Basophils # (0-0.2) k/uL PT (10.0-12.5) sec INR (<1.2) APTT (22.0-30.0) sec D-Dimer (<0.60) mg/L FEU Sodium (137-145) mmol/L Potassium (3.5-5.1) mmol/L Chloride (98-107) mmol/L Carbon Dioxide (22-30) mmol/L Anion Gap mmol/L BUN (9-20) mg/dL Creatinine (0.66-1.25) mg/dL Est GFR (CKD-EPI)AfAm (>60 ml/min/1.73 sqM) Est GFR (CKD-EPI)NonAf (>60 ml/min/1.73 sqM) Glucose (74-99) mg/dL Calcium (8.4-10.2) mg/dL Magnesium (1.6-2.3) mg/dL Total Bilirubin (0.2-1.3) mg/dL AST (17-59) U/L ALT (4-49) U/L Alkaline Phosphatase (38-126) U/L Troponin I <0.012 (0.000-0.034) ng/mL Total Protein (6.3-8.2) g/dL Albumin (3.5-5.0) g/dL - EKG Data -: EKG Interpreted by Me EKG Comments: EKG interpreted by me sinus rhythm 71 SD interval 160 QRS duration 110 QT/QTc 390/416 incomplete right bundle branch block nonspecific inferior configuration - Radiology Data Interpreted by me: Chest x-ray interpreted by me negative for acute process CT angio of the chest negative for PE this interpreted by me also. Critical Care Time Critical Care Time: Yes Total Critical Care Time: 31 Disposition Clinical Impression: Syncope and collapse Disposition: ADMITTED IP TO THIS [facility] Condition: Stable Referrals: Eran Gillette DO [Primary Care Provider] - 1-2 days Decision Date: 01/02/24 Decision Time: 21:30
[2024-01-02 18:04] LABS: Basophils % (A) 0 %; Eosinophils # (A) 0.1 k/uL (0-0.7); Eosinophils % (A) 1 %; HCT 48.9 % (39.0-53.0); HGB 16.5 gm/dL (13.0-17.5); Lymphocytes # (A) 1.8 k/uL (1.0-4.8); Lymphocytes % (A) 20 %; MCH 32.7 pg (25.0-35.0); MCHC 33.7 g/dL (31.0-37.0); MCV 97.1 fL (80.0-100.0); Mean Platelet Volume 7.9; Monocytes # (A) 0.5 k/uL (0-1.0); Monocytes % (A) 5 %; Neutrophils # (A) 6.7 k/uL (1.3-7.7); Neutrophils % (A) 72 %; Platelet Count 260 k/uL (150-450); RBC 5.04 m/uL (4.30-5.90); RDW 12.6 % (11.5-15.5); WBC 9.3 k/uL (3.8-10.6)
[2024-01-02] MEDS: SODIUM CHLORIDE 0.9% 1,000 ML IV STA (18:17)
[2024-01-02 18:22] LABS: ALT 58 U/L (4-49); AST 30 U/L (17-59); African American GFR (CKD) >90 (>60 ml/min/1.73 sqM); Albumin 4.5 g/dL (3.5-5.0); Alkaline Phosphatase 75 U/L (38-126); Anion Gap 5 mmol/L; Blood Urea Nitrogen 16 mg/dL (9-20); Calcium 9.4 mg/dL (8.4-10.2); Carbon Dioxide 28 mmol/L (22-30); Chloride 106 mmol/L (98-107); Glucose 111 mg/dL (74-99); Magnesium 2.2 mg/dL (1.6-2.3); Non-African American GFR(CKD) >90 (>60 ml/min/1.73 sqM); Potassium 4.7 mmol/L (3.5-5.1); Sodium 139 mmol/L (137-145); Total Bilirubin 0.6 mg/dL (0.2-1.3)
[2024-01-02 18:24] LABS: Partial Thromboplastin Time 24.1 sec (22.0-30.0); Prothrombin Time 10.9 sec (10.0-12.5)
--- NOTE | 2024-01-02 20:25 | XR ---
EXAMINATION TYPE: XR chest 2V DATE OF EXAM: 01/02/2024 7:49 PM CLINICAL INDICATION:Male, 63 years old with history of syncope; COMPARISON: Chest radiographs from 12/31/2022. TECHNIQUE: XR chest 2V Frontal and lateral views of the chest. FINDINGS: Lungs/Pleura: There is no evidence of pleural effusion, focal consolidation, or pneumothorax. Pulmonary vascularity: Unremarkable. Heart/mediastinum: Cardiomediastinal silhouette is unremarkable. Musculoskeletal: No acute osseous pathology. Other findings: None IMPRESSION: No acute cardiopulmonary disease/process.
--- NOTE | 2024-01-02 20:35 | CT ---
EXAMINATION TYPE: CT angio chest CT DLP: 365.4 mGycm, Automated exposure control for dose reduction was used. DATE OF EXAM: 01/02/2024 8:10 PM COMPARISON: Chest radiograph from same day. Multiple CTs of the chest with most recent on 04/14/2023. . CLINICAL INDICATION:Male, 63 years old with history of PE suspected; weakness, syncope and elevated d -dimer TECHNIQUE/CONTRAST: CTA scan of the thorax is performed with IV Contrast, patient injected with 80ml mL of Isovue 370, MA P images are created and reviewed these are created on a separate workstation.. FINDINGS: Pulmonary Artery: There is no evidence for a filling defect within the pulmonary vasculature to sugge st acute pulmonary embolism. The pulmonary artery is of normal size. Lungs/Pleura: No evidence of focal consolidation, pleural effusion or pneumothorax. Airway: Large airways are patent. Heart: Heart is within normal limits for size. Vasculature: No evidence of aortic aneurysm. Mediastinum: No gross evidence of adenopathy. Musculoskeletal: No acute osseous abnormalities Soft Tissues: Unremarkable. Lower neck: No significant findings. Upper Abdomen: No significant findings. IMPRESSION: 1. No evidence of pulmonary embolism.
[2024-01-02] MEDS ORDERED: NALOXONE 0.4 MG/ML 1 ML VIAL IV PRN (21:55)
[2024-01-02] MEDS ORDERED: ACETAMINOPHEN TAB 325 MG TAB PO PRN (21:55)
[2024-01-02] MEDS ORDERED: ALBUTEROL NEBULIZED 2.5 MG/3 ML INHALATION PRN (21:58)
[2024-01-02] MEDS: SODIUM CHLORIDE 0.9% 1,000 ML IV SCH (22:12)
[2024-01-02] MEDS: ATORVASTATIN 40 MG TAB PO SCH (22:31)
[2024-01-02] MEDS: cycloSPORINE 0.05% OPHTH 0.4 ML DROPERETTE BOTH EYES SCH (22:31)
[2024-01-02] MEDS: LORazepam 1 MG TAB PO PRN (23:33)
--- NOTE | 2024-01-03 07:00 | CT ---
EXAMINATION TYPE: CT brain wo con DATE OF EXAM: 01/03/2024 HISTORY: AMS, seizure CT DLP: 1083.1 mGycm. Automated Exposure Control for Dose Reduction was Utilized. TECHNIQUE: CT scan of the head is performed without contrast. COMPARISON: CT brain December 31, 2022. FINDINGS: There is no acute intracranial hemorrhage or midline shift identified. There is mild diff use ventricular and sulcal prominence redemonstrated. Mar-white matter differentiation is preserved. The calvarium is intact. The globes are intact and the visualized sinuses are clear. IMPRESSION: No acute intracranial hemorrhage or midline shift. No significant change from prior.
[2024-01-03] MEDS: CHOLECALCIFEROL 25 MCG (1000 IU) TABLET PO SCH (08:06)
[2024-01-03] MEDS: VIT A,C & E-LUTEIN-MINERALS 1 EACH TAB PO SCH (08:06)
[2024-01-03] MEDS: HYDROcodone/APAP 7.5-325MG 1 EACH TAB PO PRN (08:12)
[2024-01-03] MEDS ORDERED: NON FORMULARY DRUG (Omega-3/Dha/Epa/Fish Oil [Fish Oil 1,000 Mg Softgel] 1 EACH Capsule) PO SCH (09:00)
--- NOTE | 2024-01-03 09:00 | P.CRDCN ---
History of Present Illness History of present illness: HISTORY OF PRESENT ILLNESS: This is a 63-year-old male with a past medical history significant for frequent PVCs, nicotine dependence, insomnia, and hyperlipidemia. Patient follows in the office with Dr. Willard. We have been asked to see the patient in consultation for syncope. Patient examined at the bedside. Patient states yesterday he had a glass of water and was walking up the stairs because he was about to go take a nap. He states prior to this he was out in his garage and had found a cigarette on the ground but she states he smoked about half of. Prior to this he had not smoked for about 2 weeks. He states as he was walking up the stairs she does remember feeling somewhat dizzy and lightheaded. He denied having any chest pain or pressure. Denied any shortness of breath. The patient fell while walking up the stairs and passed out. He does report losing consciousness. His family member apparently witnessed " seizure activity" after this for about 10 seconds. The patient states that he did feel confused afterwards. He also reports as though he was about to lose incontinence of his bowels but did not. He denies biting his tongue. He states he has had an episode like this once during the height of COVID. He does report he has not been eating or drinking much over the past couple days. He also reports that he has been very stressed out recently and has not been sleeping very much. It is noted that the patient saw Dr. Willard on December 23, 2023 and plan was for a 7-day Holter monitor and coronary angiogram due to high PVC burden. The patient does not remember either of these been recommended to him and he has not scheduled either of these to be performed. DIAGNOSTICS: - EKG reveals sinus mechanism with right bundle branch block. No signs of acute ischemia.. - Chest xray negative for acute process - CTA negative for pulmonary embolism - Brain CT: Negative for acute process. - Laboratory data: WBC 9.3. Hemoglobin 16.5. Platelet count 260. D-dimer 1.30. Sodium 139. Potassium 4.7. BUN 16. Creatinine 0.60. Magnesium 2.2. Troponin negative x 3 - Current home cardiac medications include Lipitor 40 mg at night. - Most recent echocardiogram obtained in December 2022 revealed ejection fraction 50 to 55%, mild mitral regurgitation, and mild tricuspid regurgitation - Patient underwent Cardiolite stress test in January 2023 which was negative for ischemia REVIEW OF SYSTEMS: At the time of my exam: CONSTITUTIONAL: Denies fever or chills. HEENT: Denies blurred vision, vision changes, or eye pain. Denies hemoptysis CARDIOVASCULAR: Denies chest pain. Denies orthopnea. Denies PND. Denies palpitations RESPIRATORY: Denies shortness of breath. GASTROINTESTINAL: Denies abdominal pain. Denies nausea or vomiting. HEMATOLOGIC: Denies bleeding disorders. GENITOURINARY: Denies any blood in urine. SKIN: Denies pruitis. Denies rash. PHYSICAL EXAM: VITAL SIGNS: Reviewed. GENERAL: Well-developed in no acute distress. HEENT: Head is normocephalic. Pupils are equal, round. Sclerae anicteric. Mucous membranes of the mouth are moist. Neck supple. No JVD or thyromegaly LUNGS: Respirations even and unlabored. Lungs essentially clear to auscultation bilaterally. HEART: Regular rate and rhythm. S1 and S2 heard. ABDOMEN: Soft. Nondistended. Nontender. EXTREMITIES: Normal range of motion. No clubbing or cyanosis. Peripheral pul ses intact. No lower extremity edema NEUROLOGIC: Awake and alert. Oriented x 3. ASSESSMENT: Syncope, appears to be vasovagal, rule out seizure activity Frequent PVCs, patient with 17% PVC burden on Holter monitor, 2022 Hyperlipidemia History of insomnia Nicotine dependence PLAN: Obtain 2D echo to assess cardiac structure and function Obtain orthostatic blood pressures Continue telemetry monitoring to assess for any arrhythmias Resume home cardiac medications Consult neurology to rule out seizure activity Anticipate discharge home tomorrow Will schedule patient to have an 7-day Holter monitor placed at the cardiology office upon discharge tomorrow Further recommendations pending patient course Nurse practitioner note has been reviewed by physician. Signing provider agrees with the documented findings, assessment, and plan of care documented by FIRE CONTROL TECHNICIAN B as a scribe. Past Medical History Past Medical History: Sleep Apnea/CPAP/BIPAP Additional Past Medical History / Comment(s): DOES NOT USE CPAP. KARTHIK CARPAL TUNNEL PROBS. CHRONIC LOW BACK/NECK PAIN. History of Any Multi-Drug Resistant Organisms: None Reported Past Surgical History: Appendectomy, Orthopedic Surgery Additional Past Surgical History / Comment(s): RT. HAND SURGERY . COLON OSCOPY 2010. Past Anesthesia/Blood Transfusion Reactions: No Reported Reaction Past Psychological History: Anxiety, Depression Additional Psychological History / Comment(s): insomnia Smoking Status: Former smoker Past Alcohol Use History: None Reported, Rare Past Drug Use History: None Reported - Past Family History Father Family Medical History: Diabetes Mellitus, Pulmonary Embolus Mother Family Medical History: COPD Medications and Allergies Home Medications Medication Instructions Recorded Confirmed Type Albuterol Sulfate [Ventolin HFA] 2 puff INHALATION RT-Q6H PRN 12/31/22 01/02/24 History HYDROcodone/APAP 7.5-325MG [[place] 1 tab PO TID PRN 12/31/22 01/02/24 History 7.5-325] cycloSPORINE 0.05% OPHTH SOLN 1 applicator BOTH EYES BID 12/31/22 01/02/24 History [Restasis] Atorvastatin [Lipitor] 40 mg PO HS 01/02/24 01/02/24 History Cholecalciferol [Vitamin D3 (25 50 mcg PO DAILY 01/02/24 01/02/24 History Mcg = 1000 Iu)] LORazepam [Ativan] 1 mg PO DAILY PRN 01/02/24 01/02/24 History [place]-3/Dha/Epa/Fish Oil [Fish Oil 2 cap PO DAILY 01/02/24 01/02/24 History 1,000 mg Softgel] Vit C/E/Zn/Coppr/Lutein/Zeaxan 2 tab PO DAILY 01/02/24 01/02/24 History [Preservision Areds 2 Chew Tab] Allergies Allergy/AdvReac Type Severity Reaction Status Date / Time No Known Allergies Allergy Verified 01/02/24 18:15 Physical Exam Vitals: Vital Signs Temp Pulse Pulse Resp BP BP Pulse Ox 01/03/24 03:59 98.3 F 84 16 113/72 95 01/03/24 02:49 16 01/02/24 21:44 77 16 132/76 97 01/02/24 19:25 94 16 120/83 97 01/02/24 16:23 70 18 138/93 97 Intake and Output 01/02/24 01/03/24 01/03/24 22:59 06:59 14:59 Other: Voiding Method Toilet # Voids 2 Weight 79.379 kg 79.379 kg Results 01/02/24 17:36 01/02/24 17:36 Cardiac Enzymes 01/02/24 01/02/24 01/02/24 Range/Units 17:36 17:36 23:31 AST 30 (17-59) U/L Troponin I <0.012 <0.012 (0.000-0.034) ng/mL 01/03/24 Range/Units 04:54 AST (17-59) U/L Troponin I <0.012 (0.000-0.034) ng/mL Coagulation 01/02/24 Range/Units 17:36 PT 10.9 (10.0-12.5) sec APTT 24.1 (22.0-30.0) sec CBC 01/02/24 Range/Units 17:36 WBC 9.3 (3.8-10.6) k/uL RBC 5.04 (4.30-5.90) m/uL Hgb 16.5 (13.0-17.5) gm/dL Hct 48.9 (39.0-53.0) % Plt Count 260 (150-450) k/uL Comprehensive Metabolic Panel 01/02/24 Range/Units 17:36 Sodium 139 (137-145) mmol/L Potassium 4.7 (3.5-5.1) mmol/L Chloride 106 (98-107) mmol/L Carbon Dioxide 28 (22-30) mmol/L BUN 16 (9-20) mg/dL Creatinine 0.68 (0.66-1.25) mg/dL Glucose 111 H (74-99) mg/dL Calcium 9.4 (8.4-10.2) mg/dL AST 30 (17-59) U/L ALT 58 H (4-49) U/L Alkaline Phosphatase 75 (38-126) U/L Total Protein 7.0 (6.3-8.2) g/dL Albumin 4.5 (3.5-5.0) g/dL Current Medications Generic Name Dose Route Start Last Admin Trade Name Freq PRN Reason Stop Dose Admin Acetaminophen 650 mg 01/02/24 21:55 Acetaminophen Tab 325 Mg Tab PO Q6HR PRN Mild Pain or Fever > 100.5 Hydrocodone Bitart/Acetaminophen 1 each 01/02/24 21:58 Hydrocodone/Apap 7.5-325mg 1 Each Tab PO TID PRN Pain Albuterol Sulfate 2.5 mg 01/02/24 21:58 Albuterol Nebulized 2.5 Mg/3 Ml INHALATION RT-Q6H PRN Shortness Of Breath Atorvastatin Calcium 40 mg 01/02/24 22:00 01/02/24 22:31 Atorvastatin 40 Mg Tab PO 40 mg HS DEIRDRE Administration Cholecalciferol 50 mcg 01/03/24 09:00 Cholecalciferol 25 Mcg (1000 Iu) Tablet PO DAILY DEIRDRE Cyclosporine 1 drops 01/02/24 22:00 01/02/24 22:31 Cyclosporine 0.05% Ophth 0.4 Ml [place] BOTH EYES 1 drops BID DEIRDRE Administration Sodium Chloride 1,000 mls @ 20 mls/hr 01/02/24 22:00 01/02/24 22:12 Saline 0.9% IV 20 mls/hr .Q24H DEIRDRE Administration Lorazepam 1 mg 01/02/24 21:58 01/02/24 23:33 Lorazepam 1 Mg Tab PO 1 mg DAILY PRN Administration Anxiety Multivitamins/Minerals 2 each 01/03/24 09:00 Vit A,C & P-Wravep-Rwrlooat 1 Each Tab PO DAILY [facility] Naloxone HCl 0.2 mg 01/02/24 21:55 Naloxone 0.4 Mg/Ml 1 Ml Vial IV Q2M PRN Opioid Reversal Intake and Output 01/02/24 01/03/24 01/03/24 22:59 06:59 14:59 Other: Voiding Method Toilet # Voids 2 Weight 79.379 kg 79.379 kg 01/02/24 17:36 01/02/24 17:36
--- NOTE | 2024-01-03 11:29 | P.HPIM ---
History of Present Illness 63-year-old male came in after syncopal episode. Patient blood pressure is within normal limits orthostatic vitals are negative although workup is negative patient does not take any antihypertensive medications at home. Patient syncope was followed by brief episode of seizure patient lost consciousness for few seconds. Patient denies any tongue biting, loss of bowel or bladder continence. Patient was evaluated for syncope in the past and supposed to get a 7-day Holter monitor which he was not able to get until now. EKG showed sinus rhythm with right bundle branch block CTA negative for pulmonary embolism brain CT did not show any significant abnormality. Echocardiogram in December 2022 showed normal ejection fraction without any valvular abnormalities. Cardiology evaluated the patient that recommending repeat echocardiogram and Holter monitor upon discharge and neurology evaluate the patient for seizure and they recommended EEG and an MRI. Patient has significant history of insomnia leading to excessive tiredness and depression. Patient used multiple medications in the past none of them helped. REVIEW OF SYSTEMS: CONSTITUTIONAL: No fever, no malaise, no fatigue. HEENT: No recent visual problems or hearing problems. Denied any sore throat. CARDIOVASCULAR: No chest pain, orthopnea, PND, no palpitations. PULMONARY: No shortness of breath, no cough, no hemoptysis. GASTROINTESTINAL: No diarrhea, no nausea, no vomiting, no abdominal pain. NEUROLOGICAL: No headaches, no weakness, no numbness. HEMATOLOGICAL: Denies any bleeding or petechiae. GENITOURINARY: Denies any burning micturition, frequency, or urgency. MUSCULOSKELETAL/RHEUMATOLOGICAL: Denies any joint pain, swelling, or any muscle pain. ENDOCRINE: Denies any polyuria or polydipsia. The rest of the 14-point review of systems is negative. PHYSICAL EXAMINATION: GENERAL: The patient is alert and oriented x3, not in any acute distress. Well developed, well nourished. HEENT: Pupils are round and equally reacting to light. EOMI. No scleral icterus. No conjunctival pallor. Normocephalic, atraumatic. No pharyngeal erythema. No t hyromegaly. CARDIOVASCULAR: S1 and S2 present. No murmurs, rubs, or gallops. PULMONARY: Chest is clear to auscultation, no wheezing or crackles. ABDOMEN: Soft, nontender, nondistended, normoactive bowel sounds. No palpable organomegaly. MUSCULOSKELETAL: No joint swelling or deformity. EXTREMITIES: No cyanosis, clubbing, or pedal edema. NEUROLOGICAL: Gross neurological examination did not reveal any focal deficits. SKIN: No rashes. Assessment and plan -Syncope etiology is not clear echocardiogram will be obtained patient will need a Holter monitor -Seizure induced by syncope may not need any antiseizure medications. As per neurology as mentioned above Chronic insomnia leading to fatigue may benefit from consultation with specialist patient is requesting Xanax tonight for sleep tried most every available medication for insomnia in the market none of which seem to help him. -Hyperlipidemia DVT prophylaxis: Early ambulation Past Medical History Past Medical History: Sleep Apnea/CPAP/BIPAP Additional Past Medical History / Comment(s): DOES NOT USE CPAP. KARTHIK CARPAL TUNNEL PROBS. CHRONIC LOW BACK/NECK PAIN. History of Any Multi-Drug Resistant Organisms: None Reported Past Surgical History: Appendectomy, Orthopedic Surgery Additional Past Surgical History / Comment(s): RT. HAND SURGERY S. COLONOSCOPY 2010. Past Anesthesia/Blood Transfusion Reactions: No Reported Reaction Past Psychological History: Anxiety, Depression Additional Psychological History / Comment(s): insomnia Smoking Status: Former smoker Past Alcohol Use History: None Reported, Rare Past Drug Use History: None Reported - Past Family History Father Family Medical History: Diabetes Mellitus, Pulmonary Embolus Mother Family Medical History: COPD Medications and Allergies Home Medications Medication Instructions Recorded Confirmed Type Albuterol Sulfate [Ventolin HFA] 2 puff INHALATION RT-Q6H PRN 12/31/22 01/02/24 History HYDROcodone/APAP 7.5-325MG [[place] 1 tab PO TID PRN 12/31/22 01/02/24 History 7.5-325] cycloSPORINE 0.05% OPHTH SOLN 1 applicator BOTH EYES BID 12/31/22 01/02/24 History [Restasis] Atorvastatin [Lipitor] 40 mg PO HS 01/02/24 01/02/24 History Cholecalciferol [Vitamin D3 (25 50 mcg PO DAILY 01/02/24 01/02/24 History Mcg = 1000 Iu)] LORazepam [Ativan] 1 mg PO DAILY PRN 01/02/24 01/02/24 History [place]-3/Dha/Epa/Fish Oil [Fish Oil 2 cap PO DAILY 01/02/24 01/02/24 History 1,000 mg Softgel] Vit C/E/Zn/Coppr/Lutein/Zeaxan 2 tab PO DAILY 01/02/24 01/02/24 History [Preservision Areds 2 Chew Tab] Allergies Allergy/AdvReac Type Severity Reaction Status Date / Time No Known Allergies Allergy Verified 01/02/24 18:15 Physical Exam Vitals: Vital Signs Temp Pulse Pulse Resp BP BP Pulse Ox 01/03/24 08:00 78 16 01/03/24 07:00 98.5 F 78 16 143/72 94 L 01/03/24 03:59 98.3 F 84 16 113/72 95 01/03/24 02:49 16 01/02/24 21:44 77 16 132/76 97 01/02/24 19:25 94 16 120/83 97 01/02/24 16:23 70 18 138/93 97 Intake and Output 01/02/24 01/03/24 01/03/24 22:59 06:59 14:59 Other: Voiding Method Toilet Toilet # Voids 2 Weight 79.379 kg 79.379 kg Results CBC & Chem 7: 01/02/24 17:36 01/02/24 17:36 Labs: Abnormal Lab Results - Last 24 Hours (Table) 01/02/24 01/02/24 Range/Units 17:36 17:36 D-Dimer 1.30 H (<0.60) mg/L FEU Glucose 111 H (74-99) mg/dL ALT 58 H (4-49) U/L Thrombosis Risk Factor Assmnt - Choose All That Apply Any of the Below Risk Factors Present?: Yes Each Factor Represents 1 point: Obesity (BMI >25) Other Risk Factors: Yes Each Risk Factor Represents 2 Points: Age 61-74 years Other congenital or acquired thrombophilia - If yes, enter type in comment: No Thrombosis Risk Factor Assessment Total Risk Factor Score: 3 Thrombosis Risk Factor Assessment Level: Moderate Risk
--- NOTE | 2024-01-03 11:47 | P.CNNES ---
History of Present Illness Consult date: 01/03/24 Requesting physician: Maty Lee Reason for Consult: r/o seizure History of Present Illness: This is a 63-year-old gentleman who presented emergency department because of syncopal episode. Patient stated that yesterday he was feeling lightheaded and then weaning his walking up the stairs in his house he fell and lost consciousness and according to patient he had that seizure-like activity noted by family members then he was a post ictal confusion briefly according to patient. He denies any urinary or bowel incontinence or any tongue bite. He stated that about 2 years ago he felt lightheaded and almost fainted. Also about 3-4 years ago he had episode of seeing stars. He feels he is not behaving himself and feels off. He has not been sleeping for a while and he saw a sleep specialist in the past. He is on CPAP. Denies any official IV doses of seizures. Denies any stroke. Eyes any recent fever or sickness. He does have PVCs and follows up with a legal arbitrator. According to patient he was told he needs ablation. She states he has tremor of the left and the right arm both at rest and with movement been going for a while. He has severe neck issues and he follows up with Dr. Cardozo (Orthopedic). Some of the workup during his hospital visit consisted of: Patient is afebrile CBC with differential is unremarkable Serum glucose is 111, calcium is 9.4, magnesium 2.2, sodium is 139, BUN is 16 and creatinine is up 0.68. CT of the head is reported as no acute intracranial hemorrhage or midline shift. No significant change from prior. Personally reviewed the CT had an agreement with the report. EKG is reported as incomplete right bundle branch block. Ventricular rate is 71. Possible inferior myocardial infarction. Review of Systems Review of system: The 12 point system was reviewed and apparent positive and negative per HPI. Past Medical History Past Medical History: Sleep Apnea/CPAP/BIPAP Additional Past Medical History / Comment(s): DOES NOT USE CPAP. KARTHIK CARPAL TUNNEL PROBS. CHRONIC LOW BACK/NECK PAIN. History of Any Multi-Drug Resistant Organisms: None Reported Past Surgical History: Appendectomy, Orthopedic Surgery Additional Past Surgical History / Comment(s): RT. HAND SURGERY 1979'S. COLONOSCOPY 2010. Past Anesthesia/Blood Transfusion Reactions: No Reported Reaction Past Psychological History: Anxiety, Depression Additional Psychological History / Comment(s): insomnia Smoking Status: Former smoker Past Alcohol Use History: None Reported, Rare Past Drug Use History: None Reported - Past Family History Father Family Medical History: Diabetes Mellitus, Pulmonary Embolus Mother Family Medical History: COPD Medications and Allergies Home Medications Medication Instructions Recorded Confirmed Type Albuterol Sulfate [Ventolin HFA] 2 puff INHALATION RT-Q6H PRN 12/31/22 01/02/24 History HYDROcodone/APAP 7.5-325MG [[place] 1 tab PO TID PRN 12/31/22 01/02/24 History 7.5-325] cycloSPORINE 0.05% OPHTH SOLN 1 applicator BOTH EYES BID 12/31/22 01/02/24 History [Restasis] Atorvastatin [Lipitor] 40 mg PO HS 01/02/24 01/02/24 History Cholecalciferol [Vitamin D3 (25 50 mcg PO DAILY 01/02/24 01/02/24 History Mcg = 1000 Iu)] LORazepam [Ativan] 1 mg PO DAILY PRN 01/02/24 01/02/24 History [place]-3/Dha/Epa/Fish Oil [Fish Oil 2 cap PO DAILY 01/02/24 01/02/24 History 1,000 mg Softgel] Vit C/E/Zn/Coppr/Lutein/Zeaxan 2 tab PO DAILY 01/02/24 01/02/24 History [Preservision Areds 2 Chew Tab] Allergies Allergy/AdvReac Type Severity Reaction Status Date / Time No Known Allergies Allergy Verified 01/02/24 18:15 Physical Examination - Vital Signs Vital Signs: Vital Signs Temp Pulse Pulse Resp BP BP Pulse Ox 01/03/24 08:00 78 16 01/03/24 07:00 98.5 F 78 16 143/72 94 L 01/03/24 03:59 98.3 F 84 16 113/72 95 01/03/24 02:49 16 01/02/24 21:44 77 16 132/76 97 01/02/24 19:25 94 16 120/83 97 01/02/24 16:23 70 18 138/93 97 Intake and Output 01/02/24 01/03/24 01/03/24 22:59 06:59 14:59 Other: Voiding Method Toilet Toilet # Voids 2 Weight 79.379 kg 79.379 kg GENERAL: The patient is lying in bed and is not in acute distress. Appears overall anxious. NEUROLOGICAL: Higher mental function: The patient is awake, alert, oriented to self, place and time. Patient is following commands. No aphasia and no neglect. Cranial nerves: The pupils are round, equal and reactive to light and accommodation. Visual michaels are full to confrontation throughout. Extraocular movement is intact no nystagmus is noted. Facial sensation is normal to touch throughout. The facial strength is normal throughout. Hearing is normal bilaterally to hand rub. Tongue is midline and moved [id number] without any difficulty. No dysarthria is noted. Shoulder shrug is normal bilaterally. Brief Subtle tremor of uppers and head and patient appears overall anxious Motor: Gait is normal. The strength is 5 over 5 throughout. Normal tone and bulk. Cerebellum: Normal finger to nose heel to chin bilaterally. Sensation: Sensation is normal to touch throughout. Reflexes (right/left): 2+ throughout. Plantars are mute bilaterally. Results - Laboratory Findings CBC and BMP: 01/02/24 17:36 02 17:36 Abnormal Lab Findings: Abnormal Labs 01/02/24 02 17:36 17:36 D-Dimer 1.30 H Glucose 111 H ALT 58 H Assessment and Plan Assessment: This is a 63-year-old gentleman who presents because of syncopal episode that. He stated that he was going up the stairway in his house and felt lightheaded prior to the episode then he passed out and was told he had seizure-like activity by family members. Then had some post ictal confusion that was brief. Denies any urinary, bowel and conscious or tongue bite. Patient has PVCs. He had an episode of lightheadedness and faint about 2 years ago. Also he had an episode of seeing stars on both eyes about 3-4 years ago. Convulsive Syncopal episode: Rule out due to seizure vs cardiac in etiology PVC Neck pain with chronic neck issues and follows-up with Dr. Cardozo Insomnia Plan: I ordered a routine EEG. I ordered MRI the brain with and without seizure protocol Ordered orthostatic vitals and TSH Seizure precaution and pads. Cardiology is on board and ordered 2d echo. I'll not start the patient on any antiepileptic drugs until further workup to assess if this truly a seizure versus cardiac in etiology I notified patient, because of his episode of loss of consciousness per the [place] DMV to avoid driving for 6 month until no further episodes, avoid heights, avoid using heavy machinery and to swim supervised. Will defer the rest of management to the primary team. The plan is discussed with patient and his nurse. Thank you for the consultation. Dr. Herrera will start neurology service tomorrow A.M. Time with Patient: Greater than 30
[2024-01-03 19:43] LABS: T4, Free (Free Thyroxine) 1.13 ng/dL (0.78-2.19)
[2024-01-03] MEDS: ALPRAZolam 0.5 MG TAB PO PRN (21:44)
--- NOTE | 2024-01-04 10:18 | P.PN ---
Subjective Progress Note Date: 01/04/24 HISTORY OF PRESENT ILLNESS: This is a 63-year-old male with a past medical history significant for frequent PVCs, nicotine dependence, insomnia, and hyperlipidemia. Patient follows in the office with Dr. Willard. We have been asked to see the patient in consultation for syncope. Patient examined at the bedside. Patient states yesterday he had a glass of water and was walking up the stairs because he was about to go take a nap. He states prior to this he was out in his garage and had found a cigarette on the ground but she states he smoked about half of. Prior to this he had not smoked for about 2 weeks. He states as he was walking up the stairs she does remember feeling somewhat dizzy and lightheaded. He denied having any chest pain or pressure. Denied any shortness of breath. The patient fell while walking up the stairs and passed out. He does report losing consciousness. His family member apparently witnessed " seizure activity" after this for about 10 seconds. The patient states that he did feel confused afterwards. He also reports as though he was about to lose incontinence of his bowels but did not. He denies biting his tongue. He states he has had an episode like this once during the height of COVID. He does report he has not been eating or drinking much over the past couple days. He also reports that he has been very stressed out recently and has not been sleeping very much. It is noted that the patient saw Dr. Willard on December 23, 2023 and plan was for a 7-day Holter monitor and coronary angiogram due to high PVC burden. The patient does not remember either of these been recommended to him and he has not scheduled either of these to be performed. DIAGNOSTICS: - EKG reveals sinus mechanism with right bundle branch block. No signs of acute ischemia.. - Chest xray negative for acute process - CTA negative for pulmonary embolism - Brain CT: Negative for acute process. - Laboratory data: WBC 9.3. Hemoglobin 16.5. Platelet count 260. D-dimer 1 .30. Sodium 139. Potassium 4.7. BUN 16. Creatinine 0.60. Magnesium 2.2. Troponin negative x 3 - Current home cardiac medications include Lipitor 40 mg at night. - Most recent echocardiogram obtained in December 2022 revealed ejection fraction 50 to 55%, mild mitral regurgitation, and mild tricuspid regurgitation - Patient underwent Cardiolite stress test in January 2023 which was negative for ischemia 01/04 Patient is seen today in follow-up. He denies having any lightheadedness dizziness no syncopal episodes. He states he has not been sleeping and this has been going on for the past 1 and half months because his in-laws have moved in with him and there is an issue with dementia. He states he does have some shortness of breath with activity. He occasionally has some chest discomfort. Blood pressure 121/80, heart rate 72, pulse ox 94% on room air. TSH 0.399. Orthostatic vital signs are positive. PHYSICAL EXAM: VITAL SIGNS: Reviewed. GENERAL: Well-developed in no acute distress. HEENT: Head is normocephalic. Pupils are equal, round. Sclerae anicteric. Mucous membranes of the mouth are moist. Neck supple. No JVD or thyromegaly LUNGS: Respirations even and unlabored. Lungs essentially clear to auscultation bilaterally. HEART: Regular rate and rhythm. S1 and S2 heard. ABDOMEN: Soft. Nondistended. Nontender. EXTREMITIES: Normal range of motion. No clubbing or cyanosis. Peripheral pulses intact. No lower extremity edema NEUROLOGIC: Awake and alert. Oriented x 3. ASSESSMENT: Syncope, appears to be vasovagal, rule out seizure activity Frequent PVCs, patient with 17% PVC burden on Holter monitor, 2022 Hyperlipidemia History of insomnia Nicotine dependence PLAN: Obtain 2D echo to assess cardiac structure and function Continue telemetry monitoring to assess for any arrhythmias Continue home cardiac medications Consult neurology to rule out seizure activity Will schedule patient to have an 7-day Holter monitor placed at the cardiology office upon discharge If echocardiogram is unremarkable, patient is cleared from cardiology for discharge and may follow-up with Dr. Willard in 2 to 3 weeks. Nurse practitioner note has been reviewed by physician. Signing provider agrees with the documented findings, assessment, and plan of care documented by BROACHING MACHINE REPAIRER as a scribe. Objective - Vital Signs Vital signs: Vital Signs Temp 98.1 F 01/04/24 01:59 Pulse 76 01/04/24 01:59 Resp 18 01/04/24 01:59 BP 109/67 01/04/24 01:59 Pulse Ox 98 01/04/24 01:59 FiO2 Intake & Output 01/03/24 01/04/24 01/04/24 18:59 06:59 18:59 Intake Total 500 Balance 500 Intake: Oral 500 Other: Voiding Method Toilet Toilet # Voids 4 2 - Labs CBC & Chem 7: 01/02/24 17:36 01/02/24 17:36 Labs: Abnormal Lab Results - Last 24 Hours (Table) 01/03/24 Range/Units 12:05 TSH 0.399 L (0.465-4.680) mIU/L
[2024-01-04] MEDS: ALPRAZolam 0.5 MG TAB PO STA (15:51)
--- NOTE | 2024-01-04 17:08 | MR ---
EXAMINATION TYPE: MR brain wo/w con DATE OF EXAM: 01/04/2024 COMPARISON: 12/26/2019 HISTORY: Seizure TECHNIQUE: Multiplanar, multisequence images of the brain and brainstem is performed without and with IV contras t, utilizing 8 mL intravenous Gadavist . Findings: On the T1-weighted sagittal images, the midline structures including the craniovertebral junction rel ationships appear normal. The ventricles, basal cisterns and sulci over the convexities are within normal limits and there is n o mass effect or shift of midline structures No abnormal signal intensity is seen throughout the brain parenchyma. Based on diffusion-weighted imaging, there is no diffusion restriction or acute ischemic event. Following contrast administration, there is no pathological enhancement. The posterior fossa including the brainstem, fourth ventricle and cerebellar pontine angles appear no rmal. Intraorbital contents are normal and symmetric. Visualized paranasal sinuses and mastoid air cells ar e well aerated. IMPRESSION: No significant abnormality seen.
--- NOTE | 2024-01-04 18:03 | CA ---
Transthoracic Echo Report Name: Eduardo Anderson Age: 63 Gender: M : 1960 Exam Date: 01/04/2024 11:32 Exam Location: [facility] Ht (in): 68 Wt (lb): 175 Ordering Physician: Dinesh Clark MD Attending/Referring Phys: Sack Cleaner Trina Diaz RDCS Procedure CPT: Indications: syncopal episode Cardiac Hx: Technical Quality: Fair Contrast 1: Total Dose (mL): Contrast 2: Total Dose (mL): MEASUREMENTS (Male / Female) Normal Values 2D ECHO LV Diastolic Diameter PLAX 3.6 cm 4.2 - 5.9 / 3.9 - 5.3 cm LV Systolic Diameter PLAX 2.2 cm IVS Diastolic Thickness 1.6 cm 0.6 - 1.0 / 0.6 - 0.9 cm LVPW Diastolic Thickness 1.7 cm 0.6 - 1.0 / 0.6 - 0.9 cm LV Relative Wall Thickness 0.9 RV Internal Dim ED PLAX 4.1 cm LA Volume 50.5 cm??? 18 - 58 / 22 - 52 cm??? LA Volume Index 25.7 cm???/m??? 16 - 28 cm???/m??? M-MODE Aortic Root Diameter MM 3.7 cm LA Systolic Diameter MM 4.0 cm LA Ao Ratio MM 1.1 AV Cusp Separation MM 1.5 cm DOPPLER AV Peak Velocity 179.1 cm/s AV Peak Gradient 12.8 mmHg AV Mean Velocity 137.1 cm/s AV Mean Gradient 8.0 mmHg AV Velocity Time Integral 36.0 cm LVOT Peak Velocity 86.1 cm/s LVOT Peak Gradient 3.0 mmHg LVOT Velocity Time Integral 22.9 cm MV Area PHT 3.0 cm??? Mitral E Point Velocity 64.0 cm/s Mitral A Point Velocity 99.4 cm/s Mitral E to A Ratio 0.6 MV Deceleration Time 248.8 ms MV E' Velocity 6.9 cm/s Mitral E to MV E' Ratio 9.3 FINDINGS Left Ventricle Moderately increased left ventricular wall thickness. Left ventricular cavity size normal. Normal left ventricular systolic function with no obvious regional wall motion abnormalities. Left ventricular ejection fraction is estimated at 55-60 %. Right Ventricle Mild right ventricular dilatation. Right Atrium Normal right atrial size. Left Atrium Normal left atrial size. Mitral Valve Structurally normal mitral valve. No mitral stenosis. Mild mitral regurgitation. Aortic Valve Trileaflet aortic valve. No aortic valve stenosis or regurgitation. Tricuspid Valve Structurally normal tricuspid valve. Mild tricuspid regurgitation. Pulmonic Valve Structurally normal pulmonic valve. Pericardium No pericardial effusion. Aorta Normal size aortic root and proximal ascending aorta. CONCLUSIONS 1. Normal left ventricular size and systolic function 2. Mild mitral and tricuspid regurgitation Previewed by: Dr. Deng Cason MD (Electronically Signed) Final Date: 04 January 2024 18:02
--- NOTE | 2024-01-04 18:30 | P.PN ---
Subjective Progress Note Date: 01/04/24 Patient initially seen by Dr. Guero Ba. Please refer to his note for details. Patient is a 63-year-old male with syncopal episode at home and per family has seizure-like activity. Patient's was also present today. Patient states that he has history of chronic sleep issue. He does not get restorative sleep. He has previously failed melatonin, trazodone, Belsomra, Ambien, sleep hygiene. He had undergone sleep study, and no obvious problems were identified. Objective - Vital Signs Vital signs: Vital Signs Temp 97.6 F 01/04/24 14:09 Pulse 89 01/04/24 14:09 Resp 18 01/04/24 14:09 BP 119/79 01/04/24 14:09 Pulse Ox 95 01/04/24 14:09 FiO2 Intake & Output 01/03/24 01/04/24 01/04/24 18:59 06:59 18:59 Intake Total 500 236 Balance 500 236 Intake: Oral 500 236 Other: Voiding Method Toilet Toilet # Voids 4 2 2 - Exam Patient's mental status, speech and language functions are normal. Cranial nerves II through XII are normal. Visual michaels are full with no neglect. Face is symmetric and tongue protrudes midline. On muscle strength testing there is no pronator drift and the strength is normal in arms and legs distally and proximally. No ataxia for [id number] or omox-sk-pbam testing. Sensory to touch is equal with no neglect. - Labs CBC & Chem 7: 01/02/24 17:36 01/02/24 17:36 Assessment and Plan Assessment: This is a 63-year-old gentleman who presents because of syncopal episode. He stated that he was going up the stairway in his house and felt lightheaded prior to the episode then he passed out and was told he had seizure-like activity by family members. Then had some post ictal confusion that was brief. Denies any urinary, bowel incontinence or tongue bite. Patient has PVCs. He had an episode of lightheadedness and faint about 2 years ago. Also he had an episode of seeing stars on both eyes about 3-4 years ago. Positive orthostatics. Convulsive Syncopal episode: Doubt seizure, likely syncope due to orthostatics, rule out arrhythmia. PVC Neck pain with chronic neck issues and follows-up with Dr. Cardozo Chronic insomnia Plan: Routine EEG was performed today, which is normal EEG during wakefulness, drowsiness and sleep. No epileptiform activity was seen. No indication for antiepileptic medication. MRI the brain with and without contrast reported as normal. I personally reviewed MRI agree with the findings. Orthostatics performed at this time was abnormal. Laying blood pressure 132/79, with pulse rate of 68. On sitting up, blood pressure 86/57 with a pulse of 89. On standing up blood pressure 110/75 with pulse of 91. Temperature 98.4 with saturation 97%. Patient has positive orthostatics. He has been hydrated. Hold discharge tonight because of abnormal orthostatics. Cardiology on board. TSH is decreased 0.399, with normal free T4 1.13. Will defer to IM to address abnormal thyroid functions. Seizure precaution and pads. 2d echo revealed moderately increased left ventricular wall thickness. Left ventricular cavity size normal with EF 55 to 60%. Normal left atrial size. Agree with checking event monitor at discharge to rule out any arrhythmia. Dr. Ba has notified patient, because of his episode of loss of consciousness per the [place] DMV to avoid driving for 6 month until no further episodes, avoid heights, avoid using heavy machinery and to swim supervised. Will defer the rest of management to the primary team.
[2024-01-04] MEDS: SODIUM CHLORIDE 0.9% 500 ML 500 ML IV ONE (20:17)
[2024-01-04] MEDS: FLUDROCORTISONE 0.1 MG TAB PO SCH (20:54)
--- NOTE | 2024-01-05 00:19 | EEG ---
ELECTROENCEPHALOGRAM REPORT PREAMBLE: This is a 63-year-old male with syncopal episodes. This study is performed to evaluate for any epileptiform activity. EEG FINDINGS: This is a 21-channel digital EEG recorded with video component, utilizing 10/20 international system with referential and bipolar montages. Background consists of well developed, well regulated moderate voltage activity in 8-9 hertz alpha. Background is posterior dominant and reactive to eye opening and closing. Photic driving response was not seen. Drowsiness was seen with appearance of bilaterally symmetric theta frequency rhythm. Stage 2 sleep was seen with presence of sleep spindles and some vertex waves. No focal or generalized epileptiform activity was seen. EKG channel showed some frequent PVCs. IMPRESSION: This is a normal EEG during wakefulness, drowsiness, and stage 2 sleep. No focal, lateralized, or epileptiform activity was seen. MMANDREY / JOVANY: [id number] / MTDD
--- NOTE | 2024-01-05 06:04 | P.PN ---
Subjective Progress Note Date: 01/04/24 63-year-old male came in after syncopal episode. Patient blood pressure is within normal limits orthostatic vitals are negative although workup is negative patient does not take any antihypertensive medications at home. Patient syncope was followed by brief episode of seizure patient lost consciousness for few seconds. Patient denies any tongue biting, loss of bowel or bladder continence. Patient was evaluated for syncope in the past and supposed to get a 7-day Holter monitor which he was not able to get until now. EKG showed sinus rhythm with right bundle branch block CTA negative for pulmonary embolism brain CT did not show any significant abnormality. Echocardiogram in December 2022 showed normal ejection fraction without any valvular abnormalities. Cardiology evaluated the patient that recommending repeat echocardiogram and Holter monitor upon discharge and neurology evaluate the patient for seizure and they recommended EEG and an MRI. Patient has significant history of insomnia leading to excessive tiredness and depression. Patient used multiple medications in the past none of them helped. 01/04/2024 Patient seen and evaluated in follow-up with neurology following along with cardiology. Cardiology ordered 2D echo which was within normal limits recommending Holter monitor on discharge and outpatient follow-up. Neurology continuing ongoing workup and has ordered MRI of the brain which is pending. EEG was also done. Patient is afebrile with no reported chest pain or shortness of breath. Patient has reported he continues to feel lethargic and unable to sleep at night and reports his Xanax does not help him sleep and asking for something else. Patient was scheduled for discharge after MRI today. Review of systems: Constitutional: reports of fatigue, reports not sleeping, no fever, or chills Cardiovascular: No reports of chest pain or palpitations Respiratory: No reports of shortness of breath or cough GI: No reports of nausea, vomiting, or diarrhea : No reports of dysuria or retention Neurovascular: No reports of weakness or numbness All medications have been reviewed PHYSICAL EXAMINATION: GENERAL: The patient is alert and oriented x3, not in any acute distress. Well developed, well nourished. HEENT: Pupils are round and equally reacting to light. EOMI. No scleral icterus. No conjunctival pallor. Normocephalic, atraumatic. No pharyngeal erythema. No thyromegaly. CARDIOVASCULAR: S1 and S2 present. No murmurs, rubs, or gallops. PULMONARY: Chest is clear to auscultation, no wheezing or crackles. ABDOMEN: Soft, nontender, nondistended, normoactive bowel sounds. No palpable organomegaly. MUSCULOSKELETAL: No joint swelling or deformity. EXTREMITIES: No cyanosis, clubbing, or pedal edema. NEUROLOGICAL: Gross neurological examination did not reveal any focal deficits. SKIN: No rashes. Assessment: -Syncope etiology is not clear, 2D echo was done within normal limits, possibly secondary to orthostatic hypotension with positive orthostatic vitals -Seizure induced by syncope may not need any antiseizure medications. EEG was normal with no seizure-like activity noted -Chronic insomnia leading to fatigue, may benefit from consultation with specialist patient is requesting Xanax tonight for sleep tried most every available medication for insomnia in the market none of which seem to help him. -Hyperlipidemia -GI prophylaxis -DVT prophylaxis: Early ambulation -Full code Plan: Patient being followed by neurology undergoing MRI of the brain which was negative for acute process. EEG was normal with no epileptiform discharges noted and patient is not being started on seizure medication. Recommend outpatient follow-up Patient evaluated by cardiology and 2D echo was within normal limits recommending a Holter monitor from the cardiology office with close outpatient follow-up Patient requesting some other form of sleep aid as he reports Xanax helps him relax but does not make him sleep. Discussed with patient and nursing staff that he will need outpatient follow-up with primary care provider to discuss this Patient was scheduled for discharge although evening provider was notified of orthostatic vitals and discharge was held. Patient was given a liter bolus of normal saline and started on Florinef. Will follow-up on repeat orthostatics and neurology Discharge in 24 hours. The impression and plan of care has been dictated by Agueda Cao, Nurse Practitioner as directed. Dr. River MD I have performed a history and examination and MDM of this patient, discussed the same with the dictator, and agree with the dictator's assessment and plan as written ,documented as a scribe. Based on total visit time, I have performed more than 50% of the visit. Objective - Vital Signs Vital signs: Vital Signs Temp 97.4 F L 01/04/24 07:10 Pulse 72 01/04/24 07:10 Resp 16 01/04/24 07:10 BP 121/80 01/04/24 07:10 Pulse Ox 94 L 01/04/24 07:10 FiO2 Intake & Output 01/03/24 01/04/24 01/04/24 18:59 06:59 18:59 Intake Total 500 118 Balance 500 118 Intake: Oral 500 118 Other: Voiding Method Toilet Toilet # Voids 4 2 - Labs CBC & Chem 7: 01/02/24 17:36 01/02/24 17:36 Labs: Abnormal Lab Results - Last 24 Hours (Table) 01/03/24 Range/Units 12:05 TSH 0.399 L (0.465-4.680) mIU/L
--- NOTE | 2024-01-05 09:06 | P.PN ---
Subjective Progress Note Date: 01/05/24 HISTORY OF PRESENT ILLNESS: This is a 63-year-old male with a past medical history significant for frequent PVCs, nicotine dependence, insomnia, and hyperlipidemia. Patient follows in the office with Dr. Willard. We have been asked to see the patient in consultation for syncope. Patient examined at the bedside. Patient states yesterday he had a glass of water and was walking up the stairs because he was about to go take a nap. He states prior to this he was out in his garage and had found a cigarette on the ground but she states he smoked about half of. Prior to this he had not smoked for about 2 weeks. He states as he was walking up the stairs she does remember feeling somewhat dizzy and lightheaded. He denied having any chest pain or pressure. Denied any shortness of breath. The patient fell while walking up the stairs and passed out. He does report losing consciousness. His family member apparently witnessed " seizure activity" after this for about 10 seconds. The patient states that he did feel confused afterwards. He also reports as though he was about to lose incontinence of his bowels but did not. He denies biting his tongue. He states he has had an episode like this once during the height of COVID. He does report he has not been eating or drinking much over the past couple days. He also reports that he has been very stressed out recently and has not been sleeping very much. It is noted that the patient saw Dr. Willard on December 23, 2023 and plan was for a 7-day Holter monitor and coronary angiogram due to high PVC burden. The patient does not remember either of these been recommended to him and he has not scheduled either of these to be performed. DIAGNOSTICS: - EKG reveals sinus mechanism with right bundle branch block. No signs of acute ischemia.. - Chest xray negative for acute process - CTA negative for pulmonary embolism - Brain CT: Negative for acute process. - Laboratory data: WBC 9.3. Hemoglobin 16.5. Platelet count 260. D-dimer 1 .30. Sodium 139. Potassium 4.7. BUN 16. Creatinine 0.60. Magnesium 2.2. Troponin negative x 3 - Current home cardiac medications include Lipitor 40 mg at night. - Most recent echocardiogram obtained in December 2022 revealed ejection fraction 50 to 55%, mild mitral regurgitation, and mild tricuspid regurgitation - Patient underwent Cardiolite stress test in January 2023 which was negative for ischemia 01/04 Patient is seen today in follow-up. He denies having any lightheadedness dizziness no syncopal episodes. He states he has not been sleeping and this has been going on for the past 1 and half months because his in-laws have moved in with him and there is an issue with dementia. He states he does have some shortness of breath with activity. He occasionally has some chest discomfort. Blood pressure 121/80, heart rate 72, pulse ox 94% on room air. TSH 0.399. Orthostatic vital signs are positive. 01/05 due to orthostatic vital signs, patient discharge was held and he was started on Florinef by attending. Patient denies any chest pain, no shortness of breath. He states he has been ambulating without difficulty. Echocardiogram reveals normal left ventricular size and systolic function. Mild mitral intracostal regurgitation. Results reviewed with the patient. Patient also informed that the event monitor will be obtained from [facility] once insurance authorization has been obtained. He will receive a call regarding this. PHYSICAL EXAM: VITAL SIGNS: Reviewed. GENERAL: Well-developed in no acute distress. HEENT: Head is normocephalic. Pupils are equal, round. Sclerae anicteric. Mucous membranes of the mouth are moist. Neck supple. No JVD or thyromegaly LUNGS: Respirations even and unlabored. Lungs essentially clear to auscultation bilaterally. HEART: Regular rate and rhythm. S1 and S2 heard. ABDOMEN: Soft. Nondistended. Nontender. EXTREMITIES: Normal range of motion. No clubbing or cyanosis. Peripheral pulses intact. No lower extremity edema NEUROLOGIC: Awake and alert. Oriented x 3. ASSESSMENT: Syncope, appears to be vasovagal, rule out seizure activity Frequent PVCs, patient with 17% PVC burden on Holter monitor, 2022 Hyperlipidemia History of insomnia Nicotine dependence PLAN: Continue home cardiac medications Patient is cleared from cardiology for discharge and may follow-up with Dr. Willard in 2 to 3 weeks. Event monitor to be obtained from the office Nurse practitioner note has been reviewed by physician. Signing provider agrees with the documented findings, assessment, and plan of care documented by WING SCORER as a scribe. Objective - Vital Signs Vital signs: Vital Signs Temp 98.3 F 01/05/24 02:12 Pulse 64 01/05/24 02:12 Resp 15 01/05/24 02:12 BP 129/68 01/05/24 02:12 Pulse Ox 97 01/05/24 02:12 FiO2 Intake & Output 01/04/24 01/05/24 01/05/24 18:59 06:59 18:59 Intake Total 436 850 Balance 436 850 Intake: IV 500 Sodium Chloride 0.9% 500 500 ml 500 ml @ 999 mls/hr IV .Q31M ONE Rx#:[id number] Oral 436 350 Other: Voiding Method Toilet # Voids 2 2 - Labs CBC & Chem 7: 01/02/24 17:36 01/02/24 17:36
[2024-01-05 10:00] LABS: African American GFR (CKD) >90 (>60 ml/min/1.73 sqM); Anion Gap 6 mmol/L; Blood Urea Nitrogen 17 mg/dL (9-20); Calcium 9.2 mg/dL (8.4-10.2); Carbon Dioxide 30 mmol/L (22-30); Chloride 103 mmol/L (98-107); Glucose 154 mg/dL (74-99); Magnesium 2.1 mg/dL (1.6-2.3); Non-African American GFR(CKD) >90 (>60 ml/min/1.73 sqM); Potassium 4.8 mmol/L (3.5-5.1); Sodium 139 mmol/L (137-145)
[2024-01-05 12:53] LABS: Basophils # (A) 0.06 X 10*3/uL (0.00-0.10); Basophils % (A) 0.8 %; Eosinophils # (A) 0.21 X 10*3/uL (0.04-0.35); Eosinophils % (A) 2.8 %; HCT 48.8 % (39.6-50.0); HGB 16.4 g/dL (13.0-17.0); Lymphocytes # (A) 2.83 X 10*3/uL (0.90-5.00); Lymphocytes % (A) 38.4 %; MCH 31.9 pg (27.0-32.0); MCHC 33.6 g/dL (32.0-37.0); MCV 94.9 FL (80.0-97.0); Mean Platelet Volume 10.2 FL (9.5-12.2); Monocytes # (A) 0.53 X 10*3/uL (0.20-1.00); Monocytes % (A) 7.2 %; NRBC Per 100 WBC 0 X 10*3/uL (0.00-0.01); Neutrophils # (A) 3.72 X 10*3/uL (1.80-7.70); Neutrophils % (A) 50.5 %; Platelet Count 277 X 10*3/uL (140-440); RBC 5.14 X 10*6/uL (4.40-5.60); RDW 12.9 % (11.5-14.5); WBC 7.37 X 10*3/uL (4.50-10.00)
[2024-01-05] MEDS: SODIUM CHLORIDE 0.9% 500 ML 500 ML IV ONE (13:41)
[2024-01-05 14:16] VITALS: BP 133/73; PULSE 54; RESP 16; TEMP 97.7
== END 2024-01-05 15:21 | disposition home or self-care (01) ==
LOC: EC 16:20 → 6NMEDSUR 21:55
PROVIDERS: ADMIT Internal Medicine; ATTEND Internal Medicine
DX: R55 Syncope and collapse (principal); G47.30 Sleep apnea, unspecified; F32.A Depression, unspecified; F41.9 Anxiety disorder, unspecified; M54.2 Cervicalgia; G89.29 Other chronic pain; E78.5 Hyperlipidemia, unspecified; I49.3 Ventricular premature depolarization; F51.04 Psychophysiologic insomnia; Z87.891 Personal history of nicotine dependence; Z79.899 Other long term (current) drug therapy
CPT/HCPCS: 96361 ×5; 96360; 99291; 36415; 95816; 93005; 93306; 85379; 84439; 80053; 80048; 84443; 83735 ×2; 84484 ×2; 85025 ×2; 85610; 85730; 71046; 70450; 71275; 70553; G0378 ×4; Q9967; A9585

== ENCOUNTER 2024-03-16 09:44 | Day surgery (SDC) | payer OTHER ==
[2024-03-14 16:01] VITALS: BMI 26.6
[2024-03-16] MEDS: SODIUM CHLORIDE 0.9% 1,000 ML in EMPTY BAG 1 BAG IV SCH (07:44)
[~2024-03-16 09:44] MED LIST changes: +ALPRAZolam 0.25 MG TAB PO PRN; +ALPRAZolam 0.5 MG TAB PO PRN; -LACTATED RINGERS 1,000 ML IV SCH; +NITROGLYCERIN SL TABS 0.4 MG TAB SUBLINGUAL PRN
[2024-03-16] MEDS: SODIUM CHLORIDE 0.9% 1,000 ML IV ONE (10:16)
[2024-03-16 10:20] LABS: Basophils # (A) 0.1 k/uL (0-0.2); Basophils % (A) 1 %; Eosinophils # (A) 0.3 k/uL (0-0.7); Eosinophils % (A) 5 %; HCT 46.9 % (39.0-53.0); HGB 15.5 gm/dL (13.0-17.5); Lymphocytes # (A) 2.3 k/uL (1.0-4.8); Lymphocytes % (A) 35 %; MCH 32.3 pg (25.0-35.0); MCHC 33.1 g/dL (31.0-37.0); MCV 97.5 fL (80.0-100.0); Mean Platelet Volume 8.2; Monocytes # (A) 0.4 k/uL (0-1.0); Monocytes % (A) 6 %; Neutrophils # (A) 3.3 k/uL (1.3-7.7); Neutrophils % (A) 50 %; Platelet Count 313 k/uL (150-450); RBC 4.81 m/uL (4.30-5.90); RDW 13.2 % (11.5-15.5); WBC 6.6 k/uL (3.8-10.6)
[2024-03-16 10:39] LABS: African American GFR (CKD) >90 (>60 ml/min/1.73 sqM); Anion Gap 7 mmol/L; Blood Urea Nitrogen 22 mg/dL (9-20); Calcium 8.8 mg/dL (8.4-10.2); Carbon Dioxide 27 mmol/L (22-30); Chloride 105 mmol/L (98-107); Glucose 101 mg/dL (74-99); Non-African American GFR(CKD) >90 (>60 ml/min/1.73 sqM); Potassium 4.7 mmol/L (3.5-5.1); Sodium 139 mmol/L (137-145)
[2024-03-16 10:43] VITALS: RESP 16; TEMP 97
[2024-03-16] MEDS ORDERED: LIDOCAINE 1% INJ 10MG/ML (20 ML MDV) ONE (11:46)
[2024-03-16] MEDS ORDERED: VERAPAMIL 2.5 MG/ML 2 ML AMP ONE (11:46)
[2024-03-16] MEDS ORDERED: fentaNYL (PF) 50 MCG/ML 2 ML AMP ONE (11:58)
[2024-03-16] MEDS ORDERED: HEPARIN SODIUM 1,000 UN/ML (10ML VL) ONE (11:58)
[2024-03-16] MEDS: fentaNYL (PF) 50 MCG/ML 2 ML AMP IVP ONE (12:05)
[2024-03-16] MEDS: MIDAZOLAM 2 MG/2 ML VIAL IVP ONE ×2 (12:06→12:17)
[2024-03-16] MEDS: LIDOCAINE 1% INJ 10MG/ML (20 ML MDV) SQ ONE (12:15)
[2024-03-16] MEDS: VERAPAMIL SYRINGE (5 MG/10 ML) INTRAARTER ONE (12:18)
[2024-03-16] MEDS: HEPARIN SODIUM 1,000 UN/ML (10ML VL) IVP ONE (12:18)
[2024-03-16] MEDS: IOPAMIDOL-370 100ML BTL INJ ONE (12:28)
--- NOTE | 2024-03-16 13:16 | P.CARDCATH ---
Description of Procedure: PROCEDURES PERFORMED: Left heart catheterization, bilateral coronary angiography, ultrasound guided arterial access INDICATION: PVCs and syncope CONSENT:I have discussed the risks, benefits and alternative therapies for the above-mentioned procedure and for both sedation/analgesia as well as necessary blood product administration, if indicated, as they pertain to this patient. The patient has indicated understanding and acceptance of the risks and procedures discussed. PROCEDURE: After the risks, benefits and alternatives of the above mentioned procedure explained in detail with the patient, informed consent was obtained. Patient was taken to the catheterization lab and prepped and draped in usual fashion. Ultrasound guidance was used to assess for arterial access. 1% lidocaine was used to anesthetize the right radial artery. A 6-Georgian sheath was placed in the right radial artery using modified Seldinger technique and ultrasound guidance. Left coronary angiography was performed with a 5-Georgian JL 3.5 catheter and right coronary angiography was performed with a 5-Georgian FR5 catheter in various views. A 5-Georgian FR5 catheter was inserted into the left ventricle and pressure measurements were obtained. The right radial sheath was removed and a TR band was placed with hemostasis achieved. The patient tolera leydi the procedure well. Patient was transported back to the post catheterization holding area in stable condition. Conscious Sedation: Patient was monitored under the direct supervision of myself for conscious sedation using Versed and fentanyl for a total duration of 12 minutes HEMODYNAMICS: aorta: 138/81 LV: 134/8, LVEDP 17 SELECTIVE CORONARY ARTERIOGRAPHY: LEFT MAIN: The left main is a large caliber vessel which bifurcates into the LAD and circumflex. There is no significant stenosis. LEFT ANTERIOR DESCENDING CORONARY ARTERY: LAD is a large caliber vessel which wraps around to the apex. There are mild luminal irregularities of the proximal LAD 20% stenosis and otherwise normal. LEFT CIRCUMFLEX CORONARY ARTERY: Left circumflex is a moderate caliber vessel without significant stenosis. RIGHT CORONARY ARTERY: The right coronary artery is a large caliber vessel which gives off a PDA and PLV branch and is the dominant vessel. There is no significant stenosis. FINAL IMPRESSION: 1. Relatively normal coronary arteries other than proximal LAD 20% mild luminal irregularities 2. Mildly elevated left sided filling pressures PLAN: 1. Aggressive risk factor modification per most recent ACC/AHA guidelines. 2. Follow-up in the office in 1-2 weeks.
[2024-03-16] MEDS: ASPIRIN 325 MG TAB PO STA (16:03)
[2024-03-16 16:05] VITALS: BP 98/50; PULSE 68
== END 2024-03-16 16:25 | disposition home or self-care (01) ==
LOC: CATHCVL 09:44
PROVIDERS: ATTEND Internal Medicine
DX: I49.3 Ventricular premature depolarization (principal); I47.10 Supraventricular tachycardia, unspecified; E78.5 Hyperlipidemia, unspecified; F41.9 Anxiety disorder, unspecified; G47.00 Insomnia, unspecified; E05.90 Thyrotoxicosis, unspecified without thyrotoxic crisis or storm; F17.210 Nicotine dependence, cigarettes, uncomplicated; Z79.899 Other long term (current) drug therapy
CPT/HCPCS: 93458; 76937; 80048; 85025; 99152; C1769; C1894; J2250; J2001; J3010; J1644; Q9967

== ENCOUNTER → 2025-02-15 | Outpatient (CLI) | payer OTHER ==
--- NOTE | 2025-02-15 21:47 | CTL ---
EXAMINATION TYPE: CT Low Dose Lung DATE OF EXAM ORDERED: 02/15/2025 COMPARISON: Prior CTA chest January 02, 2024 and older CTs CLINICAL INDICATION: Male, 64 years old with history of Z12.2 ENCNTR SCREEN FOR MALIGNANT NEOPLASM O F RES; PHH, personal tobacco use, Lung cancer screening, History of Smoking/tobacco use. TECHNIQUE: Low dose computed tomography scan was performed through the chest at 1 mm thick sections a nd reconstructed images in multiple planes at 1 mm and [address] DLP: 101.[address] CTDI: 2.7 mGy Automated exposure control for dose reduction was used. CT DIAGNOSTIC QUALITY: Satisfactory FINDINGS: Nodules: None. LUNGS: COPD: Severity: Mild Fibrosis: Severity: None Lymph nodes: None. Other findings: None. RIGHT PLEURAL SPACE: Effusion: None Calcification: None Thickening: None Pneumothorax: None LEFT PLEURAL SPACE: Effusion: None Calcification: None Thickening: None Pneumothorax: None HEART: Heart Size: Normal Coronary Calcification: None Pericardial Effusion: None OTHER FINDINGS: Upper abdomen: None Bony thorax: Multilevel spurring in the spine. Supraclavicular region: None Other: None IMPRESSION: No suspicious nodules. CT LUNG RAD AND CT CHEST RECOMMENDATION: Lung-Rad 1 Negative: Continue annual screening with LDCT in 12 months. S Modifier (other clinically significant findings): None [facility], , 02/15/2025 9:45 PM
== END | disposition home or self-care (01) ==
LOC: RADCTMAIN 16:26
PROVIDERS: ATTEND Family Medicine
DX: Z12.2 Encounter for screening for malignant neoplasm of respiratory organs (principal); J44.9 Chronic obstructive pulmonary disease, unspecified; Z87.891 Personal history of nicotine dependence
CPT/HCPCS: 71271

== ENCOUNTER → 2025-06-12 | Outpatient (CLI) | payer MEDICARE, OTHER ==
[2025-06-12 16:05] LABS: Cholesterol 102.00 mg/dL (0.00-200.00); HDL Cholesterol 43.40 mg/dL (40.00-60.00); LDL Cholesterol,Calculated 43.1 mg/dL (0.0-131.0); Triglycerides 77.30 mg/dL (0.00-149.00); VLDL Calculation 15.46 mg/dL (5.00-40.00)
== END | disposition home or self-care (01) ==
LOC: LABWHC1 11:09
PROVIDERS: ATTEND Nurse Practitioner Adult Health
DX: I10 Essential (primary) hypertension (principal); E78.5 Hyperlipidemia, unspecified
CPT/HCPCS: 36415; 80061; 84443